=== PATIENT | male | born 1935 | race Caucasian/White ===

== ENCOUNTER → 2016-07-21 | Outpatient (REF) | payer MEDICARE ==
[~2016-07-21] MED LIST: /PANT40TA OR; ACET65TA OR; ASPI81TA3 OR; MUCINEX PO; NAPR250T45 PO; OCUVTAB8 PO; RANI1TAB38 PO; RANI300C PO; VIT D 2000 PO
[2016-07-21 12:43] LABS: ALBUMIN 3.5 GM/DL (3.2-5.2); ALBUMIN/GLOBULIN RATIO 1.25 (1.00-1.93); ALKALINE PHOSPHATASE 81 U/L (45-117); ALT/SGPT 15 U/L (12-78); ANION GAP 7 MEQ/L (8-16); AST/SGOT 18 U/L (15-37); BILIRUBIN,TOTAL 0.5 MG/DL (0.2-1.0); BLOOD UREA NITROGEN 23 MG/DL (7-18); CALCIUM LEVEL 9.1 MG/DL (8.8-10.2); CARBON DIOXIDE LEVEL 27 MEQ/L (21-32); CHLORIDE LEVEL 111 MEQ/L (98-107); CREATININE FOR GFR 1.21 MG/DL (0.70-1.30); FERRITIN 15 NG/ML (26-388); GLOMERULAR FILTRATION RATE > 60.0 (>35); GLUCOSE, FASTING 82 MG/DL (83-110); PERCENT SATURATION 24.4 % (19.7-37.4); POTASSIUM SERUM 4.4 MEQ/L (3.5-5.1); SODIUM LEVEL 145 MEQ/L (136-145); TOTAL IRON BINDING CAPACITY 312 UG/DL (250-450); TOTAL PROTEIN 6.3 GM/DL (6.4-8.2)
[2016-07-21 12:54] LABS: MEAN CORPUSCULAR HEMOGLOBIN 30.3 pg (27.0-33.0); MEAN CORPUSCULAR HGB CONC 31.1 g/dl (32.0-36.5); MEAN CORPUSCULAR VOLUME 97.3 fl (80.0-96.0); RED CELL DISTRIBUTION WIDTH 12.8 % (11.5-14.5); RETIC HEMOGLOBIN CONTENT CHr 32.2 PG (24-36); RETICULOCYTE % ADVIA2120 1.5 % (0.5-1.5); WHITE BLOOD COUNT 4.7 K/mm3 (4.0-10.0)
== END ==
LOC: M SFHCPLAZ 08:35
PROVIDERS: ATTEND Family Medicine
DX: D50.9 Iron deficiency anemia, unspecified (principal)

== ENCOUNTER → 2016-11-17 | Outpatient (REF) | payer MEDICARE ==
[2016-11-17 11:35] LABS: MEAN CORPUSCULAR HEMOGLOBIN 32.5 pg (27.0-33.0); MEAN CORPUSCULAR HGB CONC 32.8 g/dl (32.0-36.5); RED CELL DISTRIBUTION WIDTH 13.3 % (11.5-14.5); RETIC HEMOGLOBIN CONTENT CHr 33.4 PG (24-36); RETICULOCYTE % 1.1 % (0.5-1.5); WHITE BLOOD COUNT 4.7 K/mm3 (4.0-10.0)
== END ==
LOC: M SFHCPLAZ 08:30
PROVIDERS: ATTEND Family Medicine
DX: D50.9 Iron deficiency anemia, unspecified (principal)

== ENCOUNTER → 2017-06-22 | Outpatient (REF) | payer MEDICARE ==
[2017-06-22 12:28] LABS: HEMATOCRIT 41.3 % (42.0-52.0); HEMOGLOBIN 13.1 g/dl (14.0-18.0); MEAN CORPUSCULAR HEMOGLOBIN 30.8 pg (27.0-33.0); MEAN CORPUSCULAR HGB CONC 31.7 g/dl (32.0-36.5); MEAN CORPUSCULAR VOLUME 96.9 fl (80.0-96.0); PLATELET COUNT, AUTOMATED 235 10^3/uL (150-450); RED BLOOD COUNT 4.26 10^6/uL (4.30-6.10); RED CELL DISTRIBUTION WIDTH 13.1 % (11.5-14.5); RETIC HEMOGLOBIN EQUIVALENT 35.9 pg (24-36); RETICULOCYTE # 49.8 10^9/L (17-77); RETICULOCYTE % 1.2 % (0.5-1.5); WHITE BLOOD COUNT 5.1 10^3/uL (4.0-10.0)
[2017-06-22 12:44] LABS: ALBUMIN 3.4 GM/DL (3.2-5.2); ALBUMIN/GLOBULIN RATIO 1.26 (1.00-1.93); ALKALINE PHOSPHATASE 67 U/L (45-117); ALT/SGPT 16 U/L (12-78); ANION GAP 8 MEQ/L (8-16); AST/SGOT 13 U/L (7-37); BILIRUBIN,TOTAL 0.4 MG/DL (0.2-1.0); BLOOD UREA NITROGEN 22 MG/DL (7-18); CALCIUM LEVEL 8.9 MG/DL (8.8-10.2); CARBON DIOXIDE LEVEL 26 MEQ/L (21-32); CHLORIDE LEVEL 110 MEQ/L (98-107); CREATININE FOR GFR 1.33 MG/DL (0.70-1.30); FERRITIN 20 NG/ML (26-388); GLOMERULAR FILTRATION RATE 54.8 (>35); GLUCOSE, FASTING 82 MG/DL (70-100); IRON (FE) 72 UG/DL (65-175); PERCENT SATURATION 25.4 % (19.7-50.0); POTASSIUM SERUM 4.4 MEQ/L (3.5-5.1); SODIUM LEVEL 144 MEQ/L (136-145); TOTAL IRON BINDING CAPACITY 283 UG/DL (250-450); TOTAL PROTEIN 6.1 GM/DL (6.4-8.2)
== END ==
LOC: M SFHCPLAZ 08:04
DX: D50.9 Iron deficiency anemia, unspecified (principal); E78.4 Other hyperlipidemia
CPT/HCPCS: 83550

== ENCOUNTER 2017-08-16 08:23 | Day surgery (SDC) | payer MEDICARE ==
[2017-08-16] MEDS ORDERED: NS 1,000 ML IV (09:00)
[2017-08-16] MEDS ORDERED: PROPOFOL 200 MG/20 ML VIAL As Ordered (09:23)
== END 2017-08-16 10:32 | disposition home or self-care (01) ==
LOC: M OPP 08:23
DX: D50.9 Iron deficiency anemia, unspecified (principal); K22.8 Other specified diseases of esophagus; K44.9 Diaphragmatic hernia without obstruction or gangrene; K29.70 Gastritis, unspecified, without bleeding; E78.00 Pure hypercholesterolemia, unspecified; F64.9 Gender identity disorder, unspecified; G47.30 Sleep apnea, unspecified; N40.0 Benign prostatic hyperplasia without lower urinary tract symptoms; Z79.82 Long term (current) use of aspirin; Z79.899 Other long term (current) drug therapy; Z88.8 Allergy status to other drugs, medicaments and biological substances; Z87.891 Personal history of nicotine dependence
CPT/HCPCS: 43235

== ENCOUNTER → 2017-08-30 | Outpatient (REF) | payer MEDICARE ==
[2017-08-30 12:01] LABS: ALBUMIN 3.4 GM/DL (3.2-5.2); ALBUMIN/GLOBULIN RATIO 1.13 (1.00-1.93); ALKALINE PHOSPHATASE 76 U/L (45-117); ALT/SGPT 16 U/L (12-78); AST/SGOT 12 U/L (7-37); BILIRUBIN,DIRECT < 0.1 MG/DL (0.0-0.2); BILIRUBIN,TOTAL 0.5 MG/DL (0.2-1.0); TOTAL PROTEIN 6.4 GM/DL (6.4-8.2)
== END ==
LOC: M SFHCPLAZ 08:53
DX: Z51.81 Encounter for therapeutic drug level monitoring (principal)
CPT/HCPCS: 80076

== ENCOUNTER → 2018-08-01 | Outpatient (REF) | payer MEDICARE ==
[~2018-08-01] MED LIST changes: -/PANT40TA OR; +ALEV220T26 PO; +FERR325T3 PO; +FISH100049 PO; -NAPR250T45 PO; +NAPR250T82 PO; +PRESCAP6 PO; +PROT1TAB2 OR
[2018-08-01 12:36] LABS: ALBUMIN 3.2 GM/DL (3.2-5.2); BILIRUBIN,TOTAL 0.4 MG/DL (0.2-1.0); CALCIUM LEVEL 8.9 MG/DL (8.8-10.2); CREATININE FOR GFR 1.37 MG/DL (0.70-1.30); GLOMERULAR FILTRATION RATE 52.7 (>35); POTASSIUM SERUM 4.3 MEQ/L (3.5-5.1); TOTAL PROTEIN 6.5 GM/DL (6.4-8.2)
[2018-08-01 14:01] LABS: HEMATOCRIT 42.4 % (42.0-52.0); HEMOGLOBIN 13.3 g/dl (13.5-17.5); MEAN CORPUSCULAR HEMOGLOBIN 29.7 pg (27.0-33.0); MEAN CORPUSCULAR HGB CONC 31.4 g/dl (32.0-36.5); MEAN CORPUSCULAR VOLUME 94.6 fl (80.0-96.0); PLATELET COUNT, AUTOMATED 282 10^3/uL (150-450); RED BLOOD COUNT 4.48 10^6/uL (4.30-6.10)
== END ==
LOC: M SFHCPLAZ 07:44
PROVIDERS: ATTEND Family Medicine
DX: K22.70 Barrett's esophagus without dysplasia (principal); D50.9 Iron deficiency anemia, unspecified; N18.3 Chronic kidney disease, stage 3 (moderate)

== ENCOUNTER → 2019-01-28 | Outpatient (REF) | payer MEDICARE ==
[2019-01-28 11:28] LABS: HEMATOCRIT 43.3 % (42.0-52.0); HEMOGLOBIN 13.6 g/dl (13.5-17.5); MEAN CORPUSCULAR HEMOGLOBIN 30.1 pg (27.0-33.0); MEAN CORPUSCULAR HGB CONC 31.4 g/dl (32.0-36.5); MEAN CORPUSCULAR VOLUME 95.8 fl (80.0-96.0); PLATELET COUNT, AUTOMATED 246 10^3/uL (150-450); RED BLOOD COUNT 4.52 10^6/uL (4.30-6.10); WHITE BLOOD COUNT 5.6 10^3/uL (4.0-10.0)
[2019-01-28 11:36] LABS: ALBUMIN 3.3 GM/DL (3.2-5.2); BILIRUBIN,TOTAL 0.6 MG/DL (0.2-1.0); CALCIUM LEVEL 9.6 MG/DL (8.8-10.2); CHOLESTEROL RISK RATIO 4.633 (<5); CREATININE FOR GFR 1.42 MG/DL (0.70-1.30); GLOMERULAR FILTRATION RATE 50.6 (>35); POTASSIUM SERUM 5.1 MEQ/L (3.5-5.1); TOTAL PROTEIN 6.6 GM/DL (6.4-8.2)
[2019-01-28 12:13] LABS: TOTAL 25(OH) VITAMIN D 20.5 NG/ML (30.0-100.0)
== END ==
LOC: M SFHCPLAZ 07:59
PROVIDERS: ATTEND Family Medicine
DX: D50.9 Iron deficiency anemia, unspecified (principal); N18.3 Chronic kidney disease, stage 3 (moderate); E78.49 Other hyperlipidemia; E55.9 Vitamin D deficiency, unspecified

== ENCOUNTER → 2019-04-10 | Outpatient (CLI) | payer MEDICARE ==
--- NOTE | 2019-04-10 17:14 | REP ---
Chest x-ray: Two views. History: Bronchitis. Comparison chest x-ray: February 14, 2008. Findings: There is a large hiatal hernia behind the heart increase in size from the prior study. Heart is not felt to be enlarged. Pulmonary vasculature is not increased. Pleural angles are sharp. No infiltrate is seen. Impression: Large hiatal hernia. Otherwise no acute disease. Electronically Signed by Travon Buck MD 04/10/2019 05:06 P
== END ==
LOC: M ADAMS 14:25
PROVIDERS: ATTEND Family Medicine
DX: J40 Bronchitis, not specified as acute or chronic (principal); K44.9 Diaphragmatic hernia without obstruction or gangrene

== ENCOUNTER → 2019-07-30 | Outpatient (REF) | payer MEDICARE ==
[2019-07-30 13:23] LABS: HEMATOCRIT 43.4 % (42.0-52.0); HEMOGLOBIN 13.8 g/dl (13.5-17.5); MEAN CORPUSCULAR HGB CONC 31.8 g/dl (32.0-36.5); MEAN CORPUSCULAR VOLUME 94.3 fl (80.0-96.0); PLATELET COUNT, AUTOMATED 272 10^3/uL (150-450); WHITE BLOOD COUNT 6.4 10^3/uL (4.0-10.0)
[2019-07-30 13:48] LABS: CREATININE FOR GFR 1.25 MG/DL (0.70-1.30)
[2019-07-30 13:49] LABS: ALBUMIN 3.3 GM/DL (3.2-5.2); BILIRUBIN,TOTAL 0.4 MG/DL (0.2-1.0); CALCIUM LEVEL 9.3 MG/DL (8.8-10.2); GLOMERULAR FILTRATION RATE 58.4 (>35); PERCENT SATURATION 21.3 % (19.7-50.0); POTASSIUM SERUM 4.7 MEQ/L (3.5-5.1); TOTAL PROTEIN 6.7 GM/DL (6.4-8.2)
[2019-07-30 13:53] LABS: TOTAL 25(OH) VITAMIN D 32.6 NG/ML (30.0-100.0)
== END ==
LOC: M SFHCADAM 10:39
PROVIDERS: ATTEND Family Medicine
DX: D50.9 Iron deficiency anemia, unspecified (principal); N18.3 Chronic kidney disease, stage 3 (moderate); E55.9 Vitamin D deficiency, unspecified

== ENCOUNTER 2020-01-19 08:11 | Emergency (ER) | payer MEDICARE ==
[~2020-01-19] VITALS: Ht 175.3 cm; Wt 81.9 kg
[2020-01-19] MEDS ORDERED: FAMO40TA3 (08:38)
[2020-01-19] MEDS ORDERED: NS 1,000 ML IV ONE (09:00)
[2020-01-19] MEDS ORDERED: ISOVUE-370 76% 100ML VIAL As Ordered ONE (09:37)
[2020-01-19 09:49] LABS: BASO % 0.3 % (0.0-1.0); EOS % 0.3 % (0.0-3.0); HEMATOCRIT 42.9 % (42.0-52.0); HEMOGLOBIN 14.2 g/dl (13.5-17.5); LYMPH # 1.3 10^3/uL (1.5-5.0); LYMPH % 9.8 % (24.0-44.0); MEAN CORPUSCULAR HEMOGLOBIN 31.1 pg (27.0-33.0); MEAN CORPUSCULAR HGB CONC 33.1 g/dl (32.0-36.5); MEAN CORPUSCULAR VOLUME 93.9 fl (80.0-96.0); MONO # 1.5 10^3/uL (0.0-0.8); MONO % 11.1 % (0.0-5.0); NEUTROPHILS # 10.4 10^3/uL (1.5-8.5); PLATELET COUNT, AUTOMATED 232 10^3/uL (150-450); RED BLOOD COUNT 4.57 10^6/uL (4.30-6.10); WHITE BLOOD COUNT 13.3 10^3/uL (4.0-10.0)
[2020-01-19 10:10] LABS: ALBUMIN 3.1 GM/DL (3.2-5.2); BILIRUBIN,DIRECT 0.2 MG/DL (0.0-0.2); BILIRUBIN,TOTAL 0.9 MG/DL (0.2-1.0); TOTAL PROTEIN 6.4 GM/DL (6.4-8.2)
[2020-01-19 10:11] LABS: INR 1.04; PROTHROMBIN TIME 13.8 SECONDS (12.5-14.3)
[2020-01-19 10:12] LABS: PARTIAL THROMBOPLASTIN TIME 36.7 SECONDS (24.2-38.5)
--- NOTE | 2020-01-19 10:31 | REPVR ---
PROCEDURE INFORMATION: Exam: CT Abdomen And Pelvis With Contrast Exam date and time: 01/19/2020 10:00 AM Age: 84 years old Clinical indication: Abdominal pain; Localized; Lower; Additional info: Urinary retention/lower ab pain TECHNIQUE: Imaging protocol: Computed tomography of the abdomen and pelvis with intravenous contrast. Radiation optimization: All CT scans at this facility use at least one of these dose optimization techniques: automated exposure control; mA and/or kV adjustment per patient size (includes targeted exams where dose is matched to clinical indication); or iterative reconstruction. Contrast material: ISOVUE 370; Contrast volume: 100 ml; Contrast route: INTRAVENOUS (IV); COMPARISON: No relevant prior studies available. FINDINGS: Lungs: Mild bibasilar atelectasis or scar Mediastinal space: There is a large hiatal hernia with paraesophageal component. Distal thoracic aorta is tortuous and ectatic. Liver: There is a 5 mm hypodense lesion in the right hepatic dome. A 2.0 cm predominantly hypodense lesion in the right posterior hepatic dome is more dense than a simple cyst with Hounsfield units of 40, with a 4 mm eccentric calcification posteriorly. Gallbladder and bile ducts: Normal. No calcified stones. No ductal dilation. Pancreas: Normal. No ductal dilation. Spleen: Normal. No splenomegaly. Adrenals: Normal. No mass. Kidneys and ureters: An exophytic slightly hypodense lesion extending to the left anterior laterally from the mid to lower left kidney measures 2.7 cm and has Hounsfield units of 27, more dense than a simple cyst. There are also two 5 mm lesions more superiorly in the left kidney which is too small to characterize. There is bilateral renal cortical atrophy, left greater than right. There is moderate to severe left-sided hydronephrosis with minimal hydroureter. There is left periureteral and perinephric fat stranding, with minimal enhancement of the left urothelium particularly in the distal ureter. No left ureteral calculus is seen. However, there are 2 locations in the left distal ureter, 1 of which is near the ureterovesical junction, with vague slightly increased density, nonspecific but raising concern for urothelial lesions such as transitional cell carcinoma. Stomach and bowel: No bowel dilatation to indicate obstruction. No pneumatosis. There are multiple colonic diverticula without focal features of diverticulitis. Appendix: Appendix is not definitively located. Intraperitoneal space: Unremarkable. No free air. No significant fluid collection. Vasculature: There is calcified atherosclerotic plaque in the abdominal aorta and medium-sized arteries in the abdomen and pelvis. No aortic aneurysm. Lymph nodes: Unremarkable. No enlarged lymph nodes. Bladder: Bladder is collapsed around a Mann catheter. There may be bladder wall thickening. Slightly prominent urachal remnant extending to the right anterosuperiorly. Reproductive: There are bilateral prostatic calcifications. Bones/joints: No acute osseous abnormality. Degenerative change with anterior bridging osteophytes at the sacroiliac joints. Soft tissues: There is fat stranding in the left inguinal region, likely from prior left inguinal hernia repair. Small recurrent residual noninflamed fat containing left inguinal hernia. Small fat containing umbilical and periumbilical noninflamed hernias. IMPRESSION: 1. Moderate to severe left-sided hydronephrosis with minimal hydroureter. Left periureteral and perinephric fat stranding with minimal enhancement of the left urothelium, most pronounced in 2 locations in the left distal ureter, nonspecific but raising concern for transitional cell carcinoma. No ureteral calculus is seen. Consider CT intravenous urogram and urology consultation. 2. 2.0 cm predominantly hypodense lesion in the right liver, more dense than a simple cyst, with 4 mm eccentric calcification. This may represent a complex cyst or solid mass. 5 mm hypodense lesion in the right hepatic dome is too small to characterize. 3. 2.7 cm hypodense lesion in the left kidney, too small to characterize but more dense than a simple cyst. This may represent a complex cyst or solid mass. Suggest comparison with prior outside studies. Consider follow-up ultrasound. There are also 2 smaller 5 mm lesions more superiorly in the left kidney which are too small to characterize, statistically most likely cysts. 4. Additional findings: Multiple colonic diverticula without focal features of diverticulitis. Noninflamed fat containing umbilical, periumbilical, and left inguinal hernias. Electronically signed by: Ursula Briceno On 01/19/2020 10:30:55 AM
[2020-01-19] MEDS ORDERED: CIPR-249 PO (11:50)
[2020-01-19 12:06] VITALS: BP 137/84
--- NOTE | 2020-01-19 15:09 | ED PDOC ---
Post-Departure Follow-Up radiology report faxed to Debbi Monteiro MD Jan 19, 2020 15:09
[2020-03-03] MEDS ORDERED: TAMS1CAP17 (10:54)
[2020-03-03] MEDS ORDERED: GNP250TA9 PO (13:07)
[2020-03-03] MEDS ORDERED: VITA100T59 PO (13:07)
== END 2020-01-19 12:18 | disposition home or self-care (01) ==
LOC: M ED 08:11
DX: N39.0 Urinary tract infection, site not specified (principal); R33.9 Retention of urine, unspecified; N13.30 Unspecified hydronephrosis; K76.89 Other specified diseases of liver; N28.9 Disorder of kidney and ureter, unspecified; G47.33 Obstructive sleep apnea (adult) (pediatric); N40.1 Benign prostatic hyperplasia with lower urinary tract symptoms; Z88.8 Allergy status to other drugs, medicaments and biological substances; Z79.899 Other long term (current) drug therapy
CPT/HCPCS: 51703; 74177; 80047; 80076; 81001; 83605; 83690; 85025; 85610; 85730; 87088; 87186; 96360; 96361; 99284; Q9967

== ENCOUNTER → 2020-01-22 | Outpatient (REF) | payer MEDICARE ==
[~2020-01-22] MED LIST changes: +CIPR-249 PO; +FAMO40TA3; +GNP250TA9 PO; +TAMS1CAP17; +VITA100T59 PO
== END ==
LOC: M SMT 14:32
PROVIDERS: ATTEND Urology
DX: R33.9 Retention of urine, unspecified (principal)

== ENCOUNTER → 2020-01-23 | Outpatient (REF) | payer MEDICARE | LOC: M SMT 15:27 | PROVIDERS: ATTEND Urology | DX: C66.9 Malignant neoplasm of unspecified ureter (principal) ==

== ENCOUNTER → 2020-02-10 | Outpatient (REF) | payer MEDICARE ==
[~2020-02-10] MED LIST changes: -GNP250TA9 PO; -TAMS1CAP17; -VITA100T59 PO
[2020-02-10 17:44] LABS: CALCIUM LEVEL 9.4 MG/DL (8.8-10.2); CREATININE FOR GFR 1.39 MG/DL (0.70-1.30); GLOMERULAR FILTRATION RATE 51.7 (>35); POTASSIUM SERUM 4.5 MEQ/L (3.5-5.1)
== END ==
LOC: M LABSMT 14:08 → M SFHCADAM 14:09
PROVIDERS: ATTEND Nurse Practitioner Women's Health
DX: N13.30 Unspecified hydronephrosis (principal)

== ENCOUNTER → 2020-02-17 | Outpatient (CLI) | payer MEDICARE ==
[~2020-02-17] MED LIST changes: +GNP250TA9 PO; +ISOVUE-370 76% 100ML VIAL As Ordered ONE; +TAMS1CAP17; +VITA100T59 PO
--- NOTE | 2020-02-17 10:08 | REP ---
INDICATION: HYDRONEPHROSIS. COMPARISON: 01/19/2020, 02/02/2010 TECHNIQUE: Axial precontrast, contrast-enhanced and delayed images from the lung bases to the pubic symphysis using 100 cc Isovue 370 intravenous contrast material. Coronal and sagittal reformations obtained. This CT examination was performed using the following dose reduction techniques: Automated exposure control, adjustment of mA and/or kv according to the patient's size, and the use of iterative reconstruction technique. FINDINGS: The right kidney/ureter and bladder appear relatively normal. The left kidney demonstrates asymmetric cortical thinning and 2.7 cm complex exophytic lateral renal cyst which remains relatively stable in density throughout the examination. There is hydroureteronephrosis with subtle enhancement to the urothelial mucosa of the collecting system along with mild stranding, and delayed excretion to the collecting system with findings to suggest masslike filling within the renal pelvis. Findings are concerning for possible neoplasm. Liver includes 2 cysts within the right hepatic lobe essentially unchanged. Spleen, pancreas, gallbladder, bilateral adrenal glands are normal. The enteric system demonstrates stable moderate/large Sarah off a halfway gastric hiatal hernia along with moderate diffuse fecal stasis and scattered colonic diverticula. No acute a bowel obstruction or inflammatory process otherwise noted. Pelvis demonstrates relatively normal bladder and evidence for prior prostate surgery with prostate calcifications essentially unchanged. No ascites. No free air. No significant adenopathy. Abdominal aorta without aneurysm or dissection. Musculoskeletal structures demonstrate age-related changes without acute osseous abnormality. IMPRESSION: 1. Abnormalities involving the left renal collecting system require urology consultation and further investigation. Differential diagnosis includes chronic debris as well as neoplasm. 2. Further nonacute chronic findings as described above. <Electronically signed by Krystian Rodriguez > 02/17/20 [id number]
== END ==
LOC: M RAD 08:24
PROVIDERS: ATTEND Nurse Practitioner Women's Health
DX: N13.30 Unspecified hydronephrosis (principal)
CPT/HCPCS: 74178; Q9967

== ENCOUNTER → 2020-02-25 | Outpatient (REF) | payer MEDICARE ==
[~2020-02-25] MED LIST changes: -ISOVUE-370 76% 100ML VIAL As Ordered ONE
[2020-02-25 12:29] LABS: HEMATOCRIT 42.3 % (42.0-52.0); HEMOGLOBIN 13.1 g/dl (13.5-17.5); MEAN CORPUSCULAR HEMOGLOBIN 29.7 pg (27.0-33.0); MEAN CORPUSCULAR VOLUME 95.9 fl (80.0-96.0); PLATELET COUNT, AUTOMATED 288 10^3/uL (150-450); RED BLOOD COUNT 4.41 10^6/uL (4.30-6.10); WHITE BLOOD COUNT 7.2 10^3/uL (4.0-10.0)
[2020-02-25 12:34] LABS: INR 1.05; PROTHROMBIN TIME 13.9 SECONDS (12.5-14.3)
[2020-02-25 12:35] LABS: PARTIAL THROMBOPLASTIN TIME 39.1 SECONDS (24.2-38.5)
[2020-02-25 12:57] LABS: CALCIUM LEVEL 9.5 MG/DL (8.8-10.2); CREATININE FOR GFR 1.7 MG/DL (0.70-1.30)
== END ==
LOC: M LABSMT 11:19 → M SFHCADAM 11:22
PROVIDERS: ATTEND Urology
DX: N13.30 Unspecified hydronephrosis (principal); Z01.818 Encounter for other preprocedural examination; N39.0 Urinary tract infection, site not specified; Z79.01 Long term (current) use of anticoagulants

== ENCOUNTER → 2020-02-26 | Outpatient (CLI) | payer MEDICARE ==
--- NOTE | 2020-02-26 09:44 | REP ---
INDICATION: HYDRONEPHROSIS/PREOP TESTING COMPARISON: 02/14/2008. TECHNIQUE: PA/Lateral FINDINGS: Lungs: Clear, no infiltrate. Heart: Normal in size. Mediastinum: Mediastinal silhouette unremarkable. There is a large hiatal hernia. Pleural angles: Mild scarring.. Bones and soft tissues: There are [id number] degenerative changes of the spine without compression deformity. IMPRESSION: No acute pulmonary disease. Large hiatal hernia. <Electronically signed by Benito Moreira > 02/26/20 0940
== END | disposition home or self-care (01) ==
LOC: M RAD 08:52
PROVIDERS: ATTEND Urology
DX: Z01.818 Encounter for other preprocedural examination (principal); N13.30 Unspecified hydronephrosis; K44.9 Diaphragmatic hernia without obstruction or gangrene

== ENCOUNTER → 2020-02-29 | Outpatient (CLI) | payer MEDICARE | LOC: M LABSMTC 11:45 | PROVIDERS: ATTEND Anesthesiology | DX: Z01.818 Encounter for other preprocedural examination (principal); Z20.828 Contact with and (suspected) exposure to other viral communicable diseases | CPT/HCPCS: C9803; U0003 ==

== ENCOUNTER → 2020-03-05 | Day surgery (SDC) | payer MEDICARE ==
[~2020-03-05] VITALS: Ht 176.5 cm; Wt 77.4 kg
[~2020-03-05] MED LIST changes: +CONRAY-60 60% 50ML VIAL (Q9961) As Ordered ONE; +LIDOCAINE 2% 100MG/5ML SDV (FOR ANES.) As Ordered ONE; +LR 1,000 ML IV ONE; +LR 1,000 ML IV SCH; +METOCLOPRAMIDE INJ 10MG/2ML VIAL (J2765 PER 1) IV PRN; +MIDAZOLAM INJ 2MG/2ML VIAL (J2250 PER 1MG) As Ordered ONE; +ONDANSETRON 4MG/2ML VIAL As Ordered ONE; +ONDANSETRON 4MG/2ML VIAL IV PRN; +PERCOCET 5MG/325MG TAB PO PRN; +ceFAZolin SOD 2 GM in IV 1 EA IV ONE; +dexameTHASONE 4 MG/ML 1ML VIAL (J1100 PER 1MG) As Ordered ONE; +ePHEDrine SULFATE 25 MG/5 ML(5MG/ML) SYRINGE As Ordered ONE; +fentaNYL 100 MCG/2 ML INJECTION (J3010) As Ordered ONE; +fentaNYL 100 MCG/2 ML INJECTION (J3010) IV PRN; +propofoL 200 MG/20 ML VIAL As Ordered ONE
--- NOTE | 2020-03-05 09:04 | REP ---
INDICATION: CYSTOSCOPY. COMPARISON: CT abdomen February 17, 2020.. TECHNIQUE: Six views. 24 seconds of fluoroscopy time is reported. FINDINGS: A sequence of 6 last image hold fluoroscopically obtained spot radiographs of the abdomen document left ureteral cannulation, contrast injection, and double-pigtail stent placement. No visible laterality markers. IMPRESSION: Procedural imaging. <Electronically signed by Garrett Buck > 03/05/20 2450
[2020-03-05 10:30] VITALS: BP 154/80
--- NOTE | 2020-03-05 10:59 | RO ---
DATE OF OPERATION: 03/05/2020 PREOPERATIVE DIAGNOSIS: Left hydronephrosis. POSTOPERATIVE DIAGNOSIS: Left renal pelvis mass. PROCEDURES: Cystoscopy, left ureteroscopy with biopsy, left retrograde pyelogram with intraoperative interpretative images, left ureteral stent placement. SURGEON: Solomon Felipe MD [employer] SUPERVISOR: None. ANESTHESIA: General. OPERATIVE INDICATIONS: This is an 84-year-old male with a left hydroureteronephrosis and based on preoperative CT scan, it was difficult to determine the cause. There was concern for a mass in the left renal pelvis. He was brought to the operating room today to investigate this. DESCRIPTION OF PROCEDURE: The patient was brought to the operating room and general anesthesia was induced. Prophylactic antibiotics were infused. He was placed in the dorsolithotomy position, and prepped, and draped in the usual sterile fashion. The cystoscope was inserted into the ureteral meatus and advanced into the bladder. A guidewire was advanced up the left collecting system. I examined the bladder thoroughly and no abnormalities were seen inside the bladder other than mild trabeculations. I then went up the left collecting system with a short semirigid ureteroscope. No abnormalities were seen in the distal ureter. A retrograde pyelogram was performed and it was notable for moderate left hydroureteronephrosis with what appeared to be a filling defect in the area of the left renal pelvis. There was no extravasation. At this point, I went up into the more proximal ureter with the short semirigid ureteroscope and no abnormalities were seen inside the ureter other than the fact that it was hydronephrotic. At this point, I traded out the short semirigid ureteroscope for a flexible ureteroscope. I advanced a ureteral access sheath up to the left collecting system. I then went up the access sheath with the flexible ureteroscope and at the level of the left renal pelvis, there was a large amount of whitish-yellowish necrotic appearing and fibrotic tissue emanating from the left renal pelvis. I entered the left renal pelvis with the ureteroscope and examined the left kidney thoroughly. The left kidney was severely hydronephrotic. There was a large amount of this fibrotic tissue in the area of the left renal pelvis. I examined all the calyces and no definite tumors were seen. I obtained urine from the left renal pelvis to be sent for culture and cytology. At this point, I used a basket to obtain several biopsies of this tissue to be sent for pathologic analysis. Of note, it was very hard to remove this tissue as it appeared to be very adherent to the urothelium. After taking a few biopsies and taking another look around the kidney, I once again could not identify any definite tumor inside the left kidney. There were no stones. At this point, another retrograde pyelogram was performed and confirmed the filling defect, and there was no extravasation. I then withdrew the ureteroscope along with the access sheath and no additional abnormalities were seen inside the ureter. I then utilized the guidewire to advance a 7-Icelandic x 22-32 cm JJ ureteral stent into the left collecting system. The wire was removed and then adequately coiled to the stent in the left renal pelvis and in the bladder. The bladder was emptied of all fluids and this marked completion of the procedure. The patient was then taken out of the dorsolithotomy position, awakened from anesthesia, and transferred to the recovery room in stable condition. ESTIMATED BLOOD LOSS: 5 mL. COMPLICATIONS: None. SPECIMENS: Urine for culture and cytology. Biopsies of the left renal pelvis mass. PLAN: The patient will follow-up in the urology clinic in approximately one week to discuss the results. If everything comes back negative from the cultures, cytology and pathology, then my main concern will be how to keep his kidney from becoming obstructed again as this tissue does not appear likely to pass. He might need chronic stenting. JEANNETTE
== END | disposition home or self-care (01) ==
LOC: M SDC 06:03
PROVIDERS: ATTEND Urology
DX: N13.30 Unspecified hydronephrosis (principal); N28.89 Other specified disorders of kidney and ureter; I96 Gangrene, not elsewhere classified; Z88.8 Allergy status to other drugs, medicaments and biological substances; E78.49 Other hyperlipidemia; K21.9 Gastro-esophageal reflux disease without esophagitis; D64.9 Anemia, unspecified; G47.30 Sleep apnea, unspecified; Z87.891 Personal history of nicotine dependence; Z79.899 Other long term (current) drug therapy
CPT/HCPCS: 52007; 52332; 74420; 87088; 87186; 87205; 88108; 88305; C1769; C1894; C2617; J0690; J1100; J2250; J2405; J3010; Q9961

== ENCOUNTER → 2020-03-31 | Outpatient (REF) | payer MEDICARE ==
[~2020-03-31] MED LIST changes: -CONRAY-60 60% 50ML VIAL (Q9961) As Ordered ONE; -LIDOCAINE 2% 100MG/5ML SDV (FOR ANES.) As Ordered ONE; -LR 1,000 ML IV ONE; -LR 1,000 ML IV SCH; -METOCLOPRAMIDE INJ 10MG/2ML VIAL (J2765 PER 1) IV PRN; -MIDAZOLAM INJ 2MG/2ML VIAL (J2250 PER 1MG) As Ordered ONE; -ONDANSETRON 4MG/2ML VIAL As Ordered ONE; -ONDANSETRON 4MG/2ML VIAL IV PRN; -PERCOCET 5MG/325MG TAB PO PRN; -ceFAZolin SOD 2 GM in IV 1 EA IV ONE; -dexameTHASONE 4 MG/ML 1ML VIAL (J1100 PER 1MG) As Ordered ONE; -ePHEDrine SULFATE 25 MG/5 ML(5MG/ML) SYRINGE As Ordered ONE; -fentaNYL 100 MCG/2 ML INJECTION (J3010) As Ordered ONE; -fentaNYL 100 MCG/2 ML INJECTION (J3010) IV PRN; -propofoL 200 MG/20 ML VIAL As Ordered ONE
[2020-03-31 14:11] LABS: APPEARANCE, URINE MANUAL TURBID (CLEAR); COLOR, URINE MANUAL YELLOW (YELLOW)
[2020-03-31 14:12] LABS: BILIRUBIN, URINE MANUAL NEGATIVE (NEGATIVE); BLOOD URINE MANUAL POSITIVE (NEGATIVE); GLUCOSE, URINE (UA) MANUAL NEGATIVE (NEGATIVE); KETONE, URINE MANUAL NEGATIVE (NEGATIVE); LEUKOCYTE ESTERASE, URINE MAN POSITIVE (NEGATIVE); NITRITE, URINE MANUAL POSITIVE (NEGATIVE); PH,URINE MAN 5.5 UNITS (5.0 - 7.0); PROTEIN, URINE MANUAL 3+ mg/dL (NEGATIVE); UROBILINOGEN, URINE MANUAL NORMAL (NORMAL)
[2020-03-31 14:14] LABS: BACTERIA, URINE LARGE AMOUNT; HYALINE CAST, URINE NONE SEEN /lpf (0-1); SQUAMOUS EPITHELIAL CELL URINE NONE SEEN /hpf (SMALL AMT); WBC, URINE TNTC /hpf (0-3)
== END ==
LOC: M SMT 13:13
PROVIDERS: ATTEND Nurse Practitioner Women's Health
DX: R30.0 Dysuria (principal)

== ENCOUNTER → 2020-05-05 | Outpatient (REF) | payer MEDICARE ==
[2020-05-05 20:07] LABS: APPEARANCE, URINE CLOUDY (CLEAR); BACTERIA, URINE AUTO 1+ (NEGATIVE); BILIRUBIN, URINE AUTO NEGATIVE (NEGATIVE); BLOOD, URINE BLOOD 2+ (NEGATIVE); COLOR, URINE YELLOW (YELLOW); GLUCOSE, URINE (UA) AUTO NEGATIVE (NEGATIVE); KETONE, URINE AUTO NEGATIVE (NEGATIVE); LEUKOCYTE ESTERASE, URINE AUTO 3+ (NEGATIVE); MUCUS, URINE SMALL (NEGATIVE); NITRITE, URINE AUTO NEGATIVE (NEGATIVE); PROTEIN, URINE AUTO 2+ mg/dL (NEGATIVE); RBC, URINE AUTO TNTC /HPF (0-3); SPECIFIC GRAVITY URINE AUTO 1.023 (1.002-1.035); SQUAMOUS EPITHELIAL CELL UR AU 0 /HPF (0-6); UROBILINOGEN, URINE AUTO 0.2 mg/dL (0.0-2.0); WBC, URINE AUTO 153 /HPF (0-3)
== END ==
LOC: M SMT 16:43
PROVIDERS: ATTEND Nurse Practitioner Women's Health
DX: N39.0 Urinary tract infection, site not specified (principal)

== ENCOUNTER → 2020-05-21 | Outpatient (REF) | payer MEDICARE ==
[2020-05-21 13:02] LABS: HEMATOCRIT 40.4 % (42.0-52.0); HEMOGLOBIN 12.6 g/dl (13.5-17.5); MEAN CORPUSCULAR HEMOGLOBIN 29.6 pg (27.0-33.0); MEAN CORPUSCULAR HGB CONC 31.2 g/dl (32.0-36.5); MEAN CORPUSCULAR VOLUME 94.8 fl (80.0-96.0); PLATELET COUNT, AUTOMATED 250 10^3/uL (150-450); RED BLOOD COUNT 4.26 10^6/uL (4.30-6.10)
[2020-05-21 13:13] LABS: PROTHROMBIN TIME 13.4 SECONDS (12.5-14.3)
[2020-05-21 13:14] LABS: PARTIAL THROMBOPLASTIN TIME 38.8 SECONDS (24.2-38.5)
[2020-05-21 13:34] LABS: CALCIUM LEVEL 9.7 MG/DL (8.8-10.2); CREATININE FOR GFR 1.61 MG/DL (0.70-1.30); GLOMERULAR FILTRATION RATE 43.6 (>35); POTASSIUM SERUM 4.7 MEQ/L (3.5-5.1)
== END ==
LOC: M SFHCADAM 09:11
PROVIDERS: ATTEND Family Medicine
DX: Z01.818 Encounter for other preprocedural examination (principal); D50.9 Iron deficiency anemia, unspecified; N18.30 Chronic kidney disease, stage 3 unspecified

== ENCOUNTER → 2020-06-01 | Outpatient (REF) | payer MEDICARE | LOC: M SMT 12:02 | PROVIDERS: ATTEND Urology | DX: N21.8 Other lower urinary tract calculus (principal) ==

== ENCOUNTER → 2020-06-12 | Outpatient (REF) | payer MEDICARE ==
[~2020-06-12] MED LIST changes: +ACET-907 PO; +ASPI81TA26 PO; -FAMO40TA3; +FAMO40TA3 PO; +FISH1000 PO; +MUCI600T31 PO; +PRESCAP PO; -TAMS1CAP17; +TAMS1CAP17 PO
[2020-06-12 14:10] LABS: APPEARANCE, URINE HAZY (CLEAR); BACTERIA, URINE AUTO 1+ (NEGATIVE); BILIRUBIN, URINE AUTO NEGATIVE (NEGATIVE); BLOOD, URINE BLOOD 3+ (NEGATIVE); COLOR, URINE YELLOW (YELLOW); GLUCOSE, URINE (UA) AUTO NEGATIVE (NEGATIVE); KETONE, URINE AUTO NEGATIVE (NEGATIVE); LEUKOCYTE ESTERASE, URINE AUTO 3+ (NEGATIVE); MUCUS, URINE SMALL (NEGATIVE); NITRITE, URINE AUTO NEGATIVE (NEGATIVE); PROTEIN, URINE AUTO 2+ mg/dL (NEGATIVE); RBC, URINE AUTO 119 /HPF (0-3); SQUAMOUS EPITHELIAL CELL UR AU 0 /HPF (0-6); UROBILINOGEN, URINE AUTO 0.2 mg/dL (0.0-2.0); WBC, URINE AUTO 57 /HPF (0-3)
== END ==
LOC: M SMT 13:41
PROVIDERS: ATTEND Nurse Practitioner Women's Health
DX: N13.30 Unspecified hydronephrosis (principal); Z01.818 Encounter for other preprocedural examination

== ENCOUNTER → 2020-06-14 | Outpatient (CLI) | payer MEDICARE | LOC: M LABSMTC 08:00 | PROVIDERS: ATTEND Anesthesiology | DX: Z01.812 Encounter for preprocedural laboratory examination (principal); Z20.822 Contact with and (suspected) exposure to COVID-19 ==

== ENCOUNTER 2020-06-19 10:51 | Day surgery (SDC) | payer MEDICARE ==
[~2020-06-19] VITALS: Ht 175.3 cm; Wt 77.1 kg
[~2020-06-19 10:51] MED LIST changes: +CIPROFLOXACIN 400 MG in IV 1 EA IV ONE; +LR 1,000 ML IV ONE
--- OUTSIDE RECORDS SUMMARY | 2020-06-19 10:55 | CCD ---
Author Author [facility] Organization [facility] Address Unknown Phone Unavailable Care Team Providers Care Puller Out Name Role Phone Solomon Felipe Unavailable PROBLEMS Type Condition ICD9-CM Code [id number] Code Onset Dates Condition S tatus W/U Status Risk SNOMED Code Notes Problem Other myositis, unspecified site M60.80 Active conf irmed 40546981 Problem Encounter for immunization Z23 Active confirmed 415711508 Problem Vitamin D deficiency, unspecified E55.9 Active con firmed 12691754 Problem Iron deficiency anemia, unspecified D50.9 Acti ve confirmed 35354945 Problem CKD (chronic kidney disease), stage III N18.3 Active confirmed 905194042 Problem Hydronephrosis N13.30 Active confirmed 53129 006 Problem Obstructive sleep apnea (adult) (pediatric) G47.33 Active confirmed 28876749 Problem UTI (urinary tract infection) N39.0 Active confirm ed 00786867 Problem 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 Ac tive confirmed 972952415 unable to tolate (multiple) PPIs; on H2A Problem Medicare annual wellness visit, subsequent Z00.00 Active confirmed 085618807 Problem Dyslipidemia E78.5 Active confirmed 6987279 07 intolerant oif (multiple) statins Problem Benign enlargement of prostate N40.0 Active confir med 768739278 Problem Preop testing Z01.818 Active confirmed 6595182 9909 ALLERGIES Allergen (clinical drug ingredient) Drug/Non Drug Allergy do cumented on EMR Reaction Allergy Type Onset Date Status atorvastatin Lipitor([facility] Code:[address]-52) myalgias Drug Allergy Active Multiple statins myalgias Non Drug Allergy Ac tive omeprazole Prilosec([facility] Code:[address]-60) Diarrhea Drug Allergy Active Crestor muscle cramps Non Drug Allergy Activ e niacin Niacin([facility] Code:[address]-46) flushed Drug Allergy Active Zetia myalgias Non Drug Allergy Active Multiple PPI's Diarrhea Non Drug Allergy Acti ve ENCOUNTERS from 1934 to 2020-06-01 Encounter Location Date Provider Diagnosis [facility] [address] [place] [address] May Solomon Felipe Calculus of other lower urinary tract lo cation N21.8 IMMUNIZATIONS Vaccine Route Administration Date Status Influenza (High Dose 65 & up) IM Intramuscular Apr 13, 2017 A dministered Influenza (High Dose 65 & up) IM Intramuscular Mar 10, 2016 A dministered Influenza (High Dose 65 & up) IM Intramuscular Mar 17, 2015 A dministered Influenza (High Dose 65 & up) IM Intramuscular Mar 25, 2014 A dministered Pneumococcal Adult 0.5mL (Pneumovax 23) IM Intramuscular Jun 25, 2015 Administered Pneumococcal 0.5mL (Prevnar 13) IM Intramuscular Mar 25, 2014 Administered Influenza (18 yrs & older) Flublok IM Intramuscular Feb 07, 2019 Administered Influenza (6mo & up) Fluzone IM Intramuscular Mar 12, 2013 Ad ministered Influenza (6mo & up) Fluzone IM Intramuscular Apr 11, 2012 Ad ministered Influenza (6mo & up) Fluzone IM Intramuscular Feb 08, 2010 Ad ministered SOCIAL HISTORY Tobacco Use: Social History Observation Description Date Details (start date - stop date) Former Smoker Sex Assigned At : Social History Observation Description Sex Assigned At Unknown Audit Question Answer Notes Total Score: 1 Interpretation: Alcohol Education Language: Question Answer Notes Languages spoken: Arabic Mandaen: Question Answer Notes Mandaen 08 Muslim Sexual Hx: Question Answer Notes Had sex in the last 12 months (vaginal, oral, or anal)? No Have you ever had an STD? No Drug and Alcohol Question Answer Notes Total Score: 0 Interpretation: No problems reported Alcohol Screening: Question Answer Notes Did you have a drink containing alcohol in the past year? Ye s Points 2 Interpretation Negative How often did you have six or more drinks on one occas ion in the past year? Never (0 points) How many drinks did you have on a typica l day when you were drinking in the past year? 1 or 2 (0 points) How often did you have a drink containing alcohol in t he past year? Two to four times a month (2 points) Tobacco Use: Question Answer Notes Are you a: former smoker How long has it been since you last smoked? > 10 years REASON FOR REFERRAL No Information VITAL SIGNS No information MEDICATIONS Medication SIG (Take, Route, Frequency, Duration) Notes Start Da te End Date Status Famotidine 40 MG 1 tablet at bedtime Orally Once a day for 90 da y(s) August, Active Magnesium 250 MG 1 tablet with a meal Orally Once a day for 30 day(s) Active Tylenol 325 MG 2 tablet as needed Orally prn Active Mucinex 600 MG 1 tablet as needed Orally every 12 hrs Active Aleve 220 MG 1 tablet as needed Orally every 12 hrs Active Aspirin EC 81 MG 1 tablet Orally Once a day Active Cipro 500 MG 1 tablet Orally every 12 hrs for 14 day(s) Active Vitamin C 500 MG as directed Orally Active Vitamin D 2000 UNIT 1 tablet Orally daily Active Flomax 0.4 MG 1 capsule Orally Once a day for 30 day(s) Active Fish Oil 1000 MG 1 capsule Orally Once a day Active Eye Vitamins 2 capsule Orally Twice a day Active PROCEDURES No Information RESULTS No Results REASON FOR VISIT blood in urine after LASER LITHO MEDICAL (GENERAL) HISTORY Type Description Date Medical History BPH bx Medical History hyperlipidemia-- intolerant of multiple statins and Zetia Medical History allergic rhinitis Medical History prediabetes/IFG Medical History metabolic syndrome Medical History RITA+ CPAP 05/2008 Medical History Fe defic anemia 02/07--neg G I w/u, transfused 2 units: Golden's on EGD; neg capsule endo, neg colonoscopy; iron studies normal Medical History Golden's esophagus EGD, + b x for metaplasia 02/07, 04/10, 03/13, 07/13; doesn't tolerate PPI's Medical History intolerable myalgias on statins Medical History renal stone, [place] 05/15 Medical History Neoplasm of uncertain behavior of skin Medical History CKD 3, GFR ~ 50 Medical History Vitamin D defic, resarted Vit D 02/16 Surgical History Bilateral inguinal hernia repair ( Dr.Ba de la fuente) Surgical History TURP () 2002 Surgical History tonsillectomy child Surgical History colonoscopy 1999, 2003, 01/2010, 07/13 Surgical History EGD (+ metaplastic changes on bx) 0, 04/10,07/13 Surgical History capsule endoscopy (neg) 2009 Surgical History EGD - HH, Biopsy showed Golden's 06/2012 Surgical History Right eye cataract 03/2016 Surgical History Left eye cataract 03/2016 Surgical History endoscopy 2018 Surgical History L URS 03/2020 Goals Section No Information Health Concerns No Information MEDICAL EQUIPMENT No Information MENTAL STATUS No Information FUNCTIONAL STATUS No Information ASSESSMENTS Encounter Date Diagnosis Assessment Notes Treatment Notes Treatm ent Clinical Notes May, Calculus of other lower urinary tract location ( ICD-10 - N21.8) PLAN OF TREATMENT Medication Medication Name Sig Start Date Stop Date Vitamin D 2000 UNIT 1 tablet Orally daily Treatment Notes Test Name Order Date URINE CULTURE 2020-05-29 Next Appt Details Provider Name:Solomon Rose Felipe, 01:15:00 PM, [address], [place], [address], Insurance Providers Payer Name Payer Address Payer Phone Insured Name Patient Relati onship to Insured Coverage Start Date Coverage End Date MEDICARE BLUE PPO [address] [facility] [id number] [address] [place] self
--- OUTSIDE RECORDS SUMMARY | 2020-06-19 10:56 | CCD ---
Author Author [facility] Organization [facility] Address Unknown Phone Unavailable Care Team Providers Care Vice President Of Human Resources Name Role Phone Wendy Licona Unavailable PROBLEMS Type Condition ICD9-CM Code MTH18-LS Code Onset Dates Condition S tatus SNOMED Code Notes Problem Other myositis, unspecified site M60.80 Active 90472984 Problem Encounter for immunization Z23 Active 10444 6002 Problem Vitamin D deficiency, unspecified E55.9 Active 16877962 Problem Iron deficiency anemia, unspecified D50.9 Acti ve 44743963 Problem CKD (chronic kidney disease), stage III N18.3 Active 709808129 Problem Hydronephrosis N13.30 Active 13195660 Problem Obstructive sleep apnea (adult) (pediatric) G47.33 Active 72612344 Problem UTI (urinary tract infection) N39.0 Active 68 592005 Problem 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 Ac tive 045060209 unable to tolate (multiple) PPIs; on H2A Problem Medicare annual wellness visit, subsequent Z00.00 Active 798581969 Problem Dyslipidemia E78.5 Active 807438898 intoleran t oif (multiple) statins Problem Benign enlargement of prostate N40.0 Active 2 72571007 Problem Preop testing Z01.818 Active 022032637 ALLERGIES Allergen (clinical drug ingredient) Drug/Non Drug Allergy do cumented on EMR Reaction Allergy Type Onset Date Status atorvastatin Lipitor([facility] Code:[address]-44) myalgias Drug Allergy Active Multiple statins myalgias Non Drug Allergy Ac tive omeprazole Prilosec([facility] Code:[address]-05) Diarrhea Drug Allergy Active Crestor muscle cramps Non Drug Allergy Activ e niacin Niacin([facility] Code:[address]-54) flushed Drug Allergy Active Zetia myalgias Non Drug Allergy Active Multiple PPI's Diarrhea Non Drug Allergy Acti ve ENCOUNTERS from 1934 to 2020-05-11 Encounter Location Date Provider Diagnosis [facility] Urology [address] [place] [address] 11 May Wendy Licona IMMUNIZATIONS Vaccine Route Administration Date Status Influenza [...] Education Language: Question Answer Notes Languages spoken: Georgian Adventism: Question Answer Notes Adventism 08 Nondenominational Sexual Hx: Question Answer Notes Had sex [...] Notes Start Da te End Date Status Aleve 220 MG 1 tablet as needed Orally every 12 hrs Active Tylenol 325 MG 2 tablet as needed Orally prn Active Eye Vitamins 2 capsule Orally Twice a day Active Bactrim DS 800-160 MG 1 tablet Orally Twice a day for 10 day(s) Jan, Not-Taking Magnesium 250 MG 1 tablet with a meal Orally Once a day for 30 day(s) Active Flomax 0.4 MG 1 capsule Orally Once a day for 30 day(s) Active Aspirin EC 81 MG 1 tablet Orally Once a day Active Mucinex 600 MG 1 tablet as needed Orally every 12 hrs Active Vitamin D 2000 UNIT 1 tablet Orally daily Active Vitamin C 500 MG as directed Orally Active Famotidine 40 MG 1 tablet at bedtime Orally Once a day for 90 da y(s) August, Active Cipro 500 MG 1 tablet Orally every 12 hrs for 10 day(s) Mar, Active Fish Oil 1000 MG 1 capsule Orally Once a day Active PROCEDURES No Information RESULTS No Results REASON FOR VISIT urine result MEDICAL (GENERAL) HISTORY Type Description Date Medical [...] History endoscopy 2018 Surgical History L URS Goals Section No Information Health Concerns No Information MEDICAL EQUIPMENT No Information MENTAL STATUS No Information FUNCTIONAL STATUS No Information ASSESSMENTS No Information PLAN OF TREATMENT Medication Medication Name Sig Start Date Stop Date Cipro 500 MG 1 tablet Orally every 12 hrs for 10 day(s) 2019 Next Appt Details Provider Name:Wendy Licona, 2020-05-01 4 09:00:00 AM, [address], [place], [address], Provider Name:Facundo Rivka, 2020-05 08:30:00 AM, [address], [place], [address], Insurance Providers Payer Name Payer Address Payer Phone Insured Name Patient Relati onship to Insured Coverage Start Date Coverage End Date MEDICARE BLUE PPO [address] [facility] [id number] [address] [place] self
--- OUTSIDE RECORDS SUMMARY | 2020-06-19 10:56 | CCD ---
Author Author [facility] Organization [facility] Address Unknown Phone Unavailable Care Team Providers Care Drilling And Production Superintendent Name Role Phone Wendy Licona Unavailable PROBLEMS Type Condition ICD9-CM Code [id number] Code Onset Dates Condition S tatus SNOMED Code Notes Problem Other myositis, unspecified site M60.80 Active 36579474 Problem Encounter for immunization Z23 Active 61082 6002 Problem Vitamin D deficiency, unspecified E55.9 Active 85321833 Problem Iron deficiency anemia, unspecified D50.9 Acti ve 17931456 Problem CKD (chronic kidney disease), stage III N18.3 Active 801999440 Problem Hydronephrosis N13.30 Active 69546978 Problem Obstructive sleep apnea (adult) (pediatric) G47.33 Active 06472782 Problem UTI (urinary tract infection) N39.0 Active 68 464991 Problem 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 Ac tive 585881863 unable to tolate (multiple) PPIs; on H2A Problem Medicare annual wellness visit, subsequent Z00.00 Active 083803012 Problem Dyslipidemia E78.5 Active 671036045 intoleran t oif (multiple) statins Problem Benign enlargement of prostate N40.0 Active 2 81673379 Problem Preop testing Z01.818 Active 084966097 ALLERGIES Allergen (clinical drug ingredient) Drug/Non Drug Allergy do cumented on EMR Reaction Allergy Type Onset Date Status atorvastatin Lipitor(NDC Code:[address]-80) myalgias Drug Allergy Active Multiple statins myalgias Non Drug Allergy Ac tive omeprazole Prilosec(ND Code:[address]-25) Diarrhea Drug Allergy Active Crestor muscle cramps Non Drug Allergy Activ e niacin Niacin([facility] Code:[address]-05) flushed Drug Allergy Active Zetia myalgias Non Drug Allergy Active Multiple PPI's Diarrhea Non Drug Allergy Acti ve ENCOUNTERS from 1934 to 2020-04-06 Encounter Location Date Provider Diagnosis [facility] [address] [place] [address] Mar Wendy Licona IMMUNIZATIONS Vaccine Route Administration Date [...] Education Language: Question Answer Notes Languages spoken: Thai Religious: Question Answer Notes Religious 08 Mormonism Sexual Hx: Question Answer Notes Had sex [...] Information RESULTS No Results REASON FOR VISIT UTI MEDICAL (GENERAL) HISTORY Type Description Date Medical [...] Provider Name:Wendy Licona, 2020-05-01 4 09:00:00 AM, [address], [place], [address], Provider Name:Facundo Rivka, 2020-05 08:30:00 AM, [address], [place], [address], Insurance Providers Payer Name Payer Address Payer Phone Insured Name Patient Relati onship to Insured Coverage Start Date Coverage End Date MEDICARE BLUE PPO [address] [facility] [id number] [address] self
--- OUTSIDE RECORDS SUMMARY | 2020-06-19 10:56 | CCD ---
Author Author [facility] Organization [facility] Address Unknown Phone Unavailable Care Team Providers Care Junior Manufacturing Engineer Name Role Phone Solomon Felipe Unavailable PROBLEMS Type Condition ICD9-CM Code HRV70-ZC Code Onset Dates Condition S tatus SNOMED Code Notes Problem Other myositis, unspecified site M60.80 Active 12889762 Problem Encounter for immunization Z23 Active 30607 6002 Problem Vitamin D deficiency, unspecified E55.9 Active 85287310 Problem Iron deficiency anemia, unspecified D50.9 Acti ve 32456961 Problem CKD (chronic kidney disease), stage III N18.3 Active 840905737 Problem Hydronephrosis N13.30 Active 56670571 Problem Obstructive sleep apnea (adult) (pediatric) G47.33 Active 37051366 Problem UTI (urinary tract infection) N39.0 Active 68 480008 Problem 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 Ac tive 922787798 unable to tolate (multiple) PPIs; on H2A Problem Medicare annual wellness visit, subsequent Z00.00 Active 330802112 Problem Dyslipidemia E78.5 Active 904385063 intoleran t oif (multiple) statins Problem Benign enlargement of prostate N40.0 Active 2 58143432 Problem Preop testing Z01.818 Active 827371905 ALLERGIES Allergen (clinical drug ingredient) Drug/Non Drug Allergy do cumented on EMR Reaction Allergy Type Onset Date Status atorvastatin Lipitor(NDC Code:[address]-18) myalgias Drug Allergy Active Multiple statins myalgias Non Drug Allergy Ac tive omeprazole Prilosec(NDC Code:[address]-33) Diarrhea Drug Allergy Active Crestor muscle cramps Non Drug Allergy Activ e niacin Niacin([facility] Code:[address]-85) flushed Drug Allergy Active Zetia myalgias Non Drug Allergy Active Multiple PPI's Diarrhea Non Drug Allergy Acti ve ENCOUNTERS from 1935 to 2020-05-06 Encounter Location Date Provider Diagnosis [facility] Urology [address] [place] [address] May Solomon Felipe IMMUNIZATIONS Vaccine Route Administration Date Status Influenza [...] Education Language: Question Answer Notes Languages spoken: Hungarian Moravian: Question Answer Notes Moravian 08 Evangelical Sexual Hx: Question Answer Notes Had sex [...] Information RESULTS No Results REASON FOR VISIT appt MEDICAL (GENERAL) HISTORY Type Description Date Medical [...] Provider Name:Wendy Licona, 2020-05-01 4 09:00:00 AM, [address], [place], [address], Provider Name:Facundo Rivka, 2020-05 08:30:00 AM, [address], [place], [address], Insurance Providers Payer Name Payer Address Payer Phone Insured Name Patient Relati onship to Insured Coverage Start Date Coverage End Date MEDICARE BLUE PPO [address] [facility] [address] [address] self
--- OUTSIDE RECORDS SUMMARY | 2020-06-19 10:56 | CCD ---
Author Author [facility] Organization [facility] Address Unknown Phone Unavailable Care Team Providers Care Mechanical Systems Engineer Name Role Phone Wendy Licona Unavailable PROBLEMS Type Condition ICD9-CM Code GUP02-KB Code Onset Dates Condition S tatus SNOMED Code Notes Problem Other myositis, unspecified site M60.80 Active 09873061 Problem Encounter for immunization Z23 Active 30232 6002 Problem Vitamin D deficiency, unspecified E55.9 Active 49268202 Problem Iron deficiency anemia, unspecified D50.9 Acti ve 85200654 Problem CKD (chronic kidney disease), stage III N18.3 Active 074934137 Problem Hydronephrosis N13.30 Active 22448159 Problem Obstructive sleep apnea (adult) (pediatric) G47.33 Active 66225396 Problem UTI (urinary tract infection) N39.0 Active 68 948376 Problem 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 Ac tive 475071194 unable to tolate (multiple) PPIs; on H2A Problem Medicare annual wellness visit, subsequent Z00.00 Active 497469539 Problem Dyslipidemia E78.5 Active 626087684 intoleran t oif (multiple) statins Problem Benign enlargement of prostate N40.0 Active 2 32974299 Problem Preop testing Z01.818 Active 751454506 ALLERGIES Allergen (clinical drug ingredient) Drug/Non Drug Allergy do cumented on EMR Reaction Allergy Type Onset Date Status atorvastatin Lipitor(NDC Code:[address]-50) myalgias Drug Allergy Active Multiple statins myalgias Non Drug Allergy Ac tive omeprazole Prilosec(NDC Code:[address]-57) Diarrhea Drug Allergy Active Crestor muscle cramps Non Drug Allergy Activ e niacin Niacin([facility] Code:[address]-60) flushed Drug Allergy Active Zetia myalgias Non Drug Allergy Active Multiple PPI's Diarrhea Non Drug Allergy Acti ve ENCOUNTERS from 1934 to 2020-05-11 Encounter Location Date Provider Diagnosis [facility] [address] [place] [address] May Wendy Licona UTI (urinary tract infection) N39.0 and Dysuria R30.0 IMMUNIZATIONS Vaccine Route Administration Date Status Influenza [...] Education Language: Question Answer Notes Languages spoken: Luxembourger Latter-Day: Question Answer Notes Latter-Day 08 Adventism Sexual Hx: Question Answer Notes Had sex [...] a day Active PROCEDURES No Information RESULTS Component Value Reference Range UA URINALYSIS Reviewed date:05/06/2020 08:16:42 Interpretation: Performing Lab:[facility] LABORATORY [address] [address] , ,[facility] URINE CULTURE Reviewed date:05/11/2020 08:48:43 Interpretation: Performing Lab:[facility] LABORATORY [address] [facility] [address] , ,[facility] REASON FOR VISIT Urinary Frequency/Urgency MEDICAL (GENERAL) HISTORY Type Description Date Medical History BPH bx Medical History hyperlipidemia-- intolerant of multiple statins and Zetia Medical History allergic rhinitis Medical History prediabetes/IFG Medical History metabolic syndrome Medical History RITA+ CPAP 05/2008 Medical History Fe defic anemia 02/07--neg G I w/u, transfused 2 units: Golden's on EGD; neg capsule endo, neg colonoscopy; iron studies normal 2014,2015 Medical History Golden's esophagus EGD, + b [...] History EGD (+ metaplastic changes on bx) , 04/10,07/13 Surgical History capsule endoscopy (neg) 2009 [...] Treatment Notes Treatm ent Clinical Notes May, UTI (urinary tract infection) (ICD-10 - N39.0) May, Dysuria (ICD-10 - R30.0) PLAN OF TREATMENT Medication Medication Name Sig Start Date Stop Date Cipro 500 MG 1 tablet Orally every 12 hrs for 10 day(s) 2019 Next Appt Details Provider Name:Wendy Licona, 2020-05-01 4 09:00:00 AM, [address], [place], [address], Provider Name:Facundo Tineo, 2020-05 08:30:00 AM, [address] , [place], [address], Insurance Providers Payer Name Payer Address Payer Phone Insured Name Patient Relati onship to Insured Coverage Start Date Coverage End Date MEDICARE BLUE PPO [address] [facility] [address] [address]
--- OUTSIDE RECORDS SUMMARY | 2020-06-19 10:56 | CCD ---
Author Author [facility] Organization [facility] Address Unknown Phone Unavailable Support Name Relationship Address Phone GEORGINA MENDOZA Next Of Kin [address] [place] [address] GEORGINA RCIHTER Next [facility] [place] [place] [address] [facility] Next Of Kin [address] [place] [address] [employer] [address] Unavailable ESTELITA MENDOZA ECON [address] [place] [address] [phone] Re-disclosure Warning The records that you are about to access may contain information from federally-assisted alcohol or drug abuse programs. If such information is present, then the following federally mandated warning applies: This information has been disclosed to you from records protected by federal confidentiality rules (42 CFR part 2). The federal rules prohibit you from making any further disclosure of this information unless further disclosure is expressly permitted by the written consent of the person to whom it pertains or as otherwise permitted by 42 CFR part 2. A general authorization for the release of medical or other information is NOT sufficient for this purpose. The Federal rules restrict any use of the information to criminally investigate or prosecute any alcohol or drug abuse patient.The records that you are about to access may contain highly sensitive health information, the redisclosure of which is protected by Article 27-F of the [facility] Public Health law. If you continue you may have access to information: Regarding HIV / AIDS; Provided by facilities licensed or operated by the [facility] Office of Mental Health; or Provided by the [facility] Office for People With Developmental Disabilities. If such information is present, then the following [facility] mandated warning applies: This information has been disclosed to you from confidential records which are protected by state law. State law prohibits you from making any further disclosure of this information without the specific written consent of the person to whom it pertains, or as otherwise permitted by law. Any unauthorized further disclosure in violation of state law may result in a fine or alf sentence or both. A general authorization for the release of medical or other information is NOT sufficient authorization for further disc losure. Allergies and Adverse Reactions Type Description Substance Reaction Status Data Source(s ) Drug allergy Prilosec Omeprazole Diarrhea Active eCW1 ([facility]) Drug allergy Lipitor atorvastatin myalgias Active eCW1 ([facility]) Drug allergy Niacin Niacin flushed Active eCW1 ([facility]) Crestor Crestor Rosuvastatin calcium 5 MG Oral Tablet [Cr estor] muscle cramps Active eCW1 ([facility]) Multiple PPI's Multiple PPI's Multiple PPI's Diarrhea Active eC W1 ([facility]) Multiple statins Multiple statins Multiple statins myalgias Active eCW1 ([facility]) Zetia Zetia ezetimibe 10 MG Oral Tablet [Zetia] myalgias Active eCW1 ([facility]) Crestor Crestor Rosuvastatin calcium 5 MG Oral Tablet [Cr estor] muscle cramps Active eCW1 ([facility]) Multiple PPI's Multiple PPI's Multiple PPI's Diarrhea Active eC W1 ([facility]) Multiple statins Multiple statins Multiple statins myalgias Active eCW1 ([facility]) Zetia Zetia ezetimibe 10 MG Oral Tablet [Zetia] myalgias Active eCW1 ([facility]) Family History Family Member Name Family Member Gender Family Member Status Date o f Status Description Data Source(s) Unknown Unknown Problem MED[facility] Unknown Male Problem MEDENT ([facility] () Encounters Encounter Providers Location Date Indications Data Source(s ) Unknown [address] [facility] [place] [address] 06/16/2020 12:00:00 AM EST eCW1 ([facility]) [place] [address] [facility] [place] [address] 05/29/2020 12:00:00 AM EST eCW1 ([facility]) Office Visit, Est Pt., Level 4 PC [address] [place] [address] 05/21/2020 12:00:00 AM EST eCW1 ([facility]) [place] [address] [facility] [address] 05/14/2020 12:00:00 AM EST eCW1 ([facility]) [place] [address] [facility] [address] 05/11/2020 12:00:00 AM EST eCW1 ([facility]) [place] [address] [facility] [address] 05/05/2020 12:00:00 AM EST eCW1 ([facility]) [place] [address] [facility] [address] 05/04/2020 12:00:00 AM EST eCW1 ([facility]) [place] [address] [facility] [address] 04/06/2020 12:00:00 AM EST eCW1 ([facility]) [place] [address] [facility] [address] 03/30/2020 12:00:00 AM EST eCW1 ([facility]) [place] [address] [facility] [address] 03/12/2020 12:00:00 AM EST eCW1 ([facility]) [place] [address] [facility] [address] 03/10/2020 12:00:00 AM EST eCW1 ([facility]) [place] [address] [facility] [address] 03/06/2020 12:00:00 AM EST eCW1 ([facility]) [place] [address] [facility] [address] 03/05/2020 12:00:00 AM EST eCW1 ([facility]) [place] [address] [facility] [address] 02/28/2020 12:00:00 AM EDT eCW1 ([facility]) [place] [address] [facility] [address] 02/27/2020 12:00:00 AM EDT eCW1 ([facility]) [place] [address] [facility] [address] 02/21/2020 12:00:00 AM EDT eCW1 [facility]) [place] [address] [facility] [address] 02/04/2020 12:00:00 AM EDT eCW1 ([facility]) [place] [address] [facility] [address] 02/03/2020 12:00:00 AM EDT eCW1 ([facility]) [place] [address] [facility] [address] 11/14/2019 12:00:00 AM EDT eCW1 ([facility]) [facility] [place] [address] [facility] [address] 11/08/2019 12:00:00 AM EDT eCW1 ([facility]) [facility] [place] [address] [facility] [address] 09/02/2019 12:00:00 AM EDT eCW1 ([facility]) [facility] [place] [address] [facility] [address] 08/01/2019 12:00:00 AM EDT eCW1 ([facility]) [facility] [place] [address] [facility] [address] 06/04/2019 12:00:00 AM EST eCW1 ([facility]) [facility] [place] [address] [facility] [address] 06/03/2019 12:00:00 AM EST eCW1 ([facility]) Immunizations Vaccine Date Status Description Data Source(s) INFLUENZA VIRUS VACCINE QUADRIVAL SPLIT 2019-21(65 YR UP)/PF 01/11/2020 12:00:00 AM EDT completed [facility] Medications Medication Brand Name Start Date Product Form Dose Route Admi nistrative Instructions Pharmacy Instructions Status Indications Reaction Description Data Source(s) 500 mg 05/17/2020 12:00:00 AM EST tablet 28 TAKE ONE TABLET BY MOUTH EVERY 12 HOURS FOR 14 DAYS TAKE ONE TABLET BY MOUTH EVERY 12 HOURS FOR 14 DAYS SO LD: 05/19/2020 [facility] 500 mg 05/11/2020 12:00:00 AM EST tablet 20 TAKE ONE TABLET BY MOUTH EVERY 12 HOURS FOR 10 DAYS TAKE ONE TABLET BY MOUTH EVERY 12 HOURS FOR 10 DAYS SO LD: 05/11/2020 [facility] Ciprofloxacin 500 MG Oral Tablet [Cipro] Cipro 500 MG Cipro 500 MG 04/02/2020 12:00:00 AM EST 1.0 {tablet} active Ci pro 500 MG eCW1 ([facility]) Ciprofloxacin 500 MG Oral Tablet [Cipro] Cipro 500 MG Cipro 500 MG 04/02/2020 12:00:00 AM EST 1.0 {tablet} active Ci pro 500 MG eCW1 ([facility]) 500 mg 04/02/2020 12:00:00 AM EST tablet 20 TAKE 1 TABLET BY MOUTH EVERY 12 HOURS FOR 10 DAYS TAKE 1 TABLET BY MOUTH EVERY 12 HOURS FOR 10 DAYS SOLD : 04/02/2020 [facility] Ciprofloxacin 500 MG Oral Tablet [Cipro] Cipro 500 MG Cipro 500 MG 04/02/2020 12:00:00 AM EST 1.0 {tablet} active Ci pro 500 MG eCW1 ([facility]) Ciprofloxacin 500 MG Oral Tablet [Cipro] Cipro 500 MG Cipro 500 MG 04/02/2020 12:00:00 AM EST 1.0 {tablet} active Ci pro 500 MG eCW1 ([facility]) Ciprofloxacin 500 MG Oral Tablet [Cipro] Cipro 500 MG Cipro 500 MG 04/02/2020 12:00:00 AM EST 1.0 {tablet} active Ci pro 500 MG eCW1 ([facility]) Sulfamethoxazole 800 MG / Trimethoprim 1 60 MG Oral Tablet [Bactrim] Bactrim DS 800-160 MG Bactrim DS 800-160 MG 02/28/2020 12:00:00 AM EDT 1.0 {table t} active Bactrim DS 800-160 MG eCW1 ( [facility]) Sulfamethoxazole 800 MG / Trimethoprim 1 60 MG Oral Tablet [Bactrim] Bactrim DS 800-160 MG Bactrim DS 800-160 MG 02/28/2020 12:00:00 AM EDT 1.0 {table t} active Bactrim DS 800-160 MG eCW1 ( [facility]) Sulfamethoxazole 800 MG / Trimethoprim 1 60 MG Oral Tablet [Bactrim] Bactrim DS 800-160 MG Bactrim DS 800-160 MG 02/28/2020 12:00:00 AM EDT 1.0 {table t} suspended Bactrim DS 800-160 MG eCW1 ( [facility]) Sulfamethoxazole 800 MG / Trimethoprim 1 60 MG Oral Tablet [Bactrim] Bactrim DS 800-160 MG Bactrim DS 800-160 MG 02/28/2020 12:00:00 AM EDT 1.0 {table t} suspended Bactrim DS 800-160 MG eCW1 ( [facility]) Sulfamethoxazole 800 MG / Trimethoprim 1 60 MG Oral Tablet [Bactrim] Bactrim DS 800-160 MG Bactrim DS 800-160 MG 02/28/2020 12:00:00 AM EDT 1.0 {table t} active Bactrim DS 800-160 MG eCW1 ( [facility]) Sulfamethoxazole 800 MG / Trimethoprim 1 60 MG Oral Tablet [Bactrim] Bactrim DS 800-160 MG Bactrim DS 800-160 MG 02/28/2020 12:00:00 AM EDT 1.0 {table t} active Bactrim DS 800-160 MG eCW1 ( [facility]) Sulfamethoxazole 800 MG / Trimethoprim 1 60 MG Oral Tablet [Bactrim] Bactrim DS 800-160 MG Bactrim DS 800-160 MG 02/28/2020 12:00:00 AM EDT 1.0 {table t} active Bactrim DS 800-160 MG eCW1 ( [facility]) Sulfamethoxazole 800 MG / Trimethoprim 1 60 MG Oral Tablet [Bactrim] Bactrim DS 800-160 MG Bactrim DS 800-160 MG 02/28/2020 12:00:00 AM EDT 1.0 {table t} suspended Bactrim DS 800-160 MG eCW1 ( [facility]) Sulfamethoxazole 800 MG / Trimethoprim 160 MG Oral Tab let 800-160 mg SULFAMETHOXAZOLE/TRIMETHOPRIM 02/28/2020 12:00:00 AM EDT tablet 20 TAKE ONE TABLET BY MOUTH TWICE A DAY FOR 10 DAYS TAKE ONE TABLET BY MOUTH TWICE A DAY FOR 10 DAYS SOLD: 02/28/2020 [facility] Sulfamethoxazole 800 MG / Trimethoprim 1 60 MG Oral Tablet [Bactrim] Bactrim DS 800-160 MG Bactrim DS 800-160 MG 02/28/2020 12:00:00 AM EDT 1.0 {table t} suspended Bactrim DS 800-160 MG eCW1 ( [facility]) Sulfamethoxazole 800 MG / Trimethoprim 1 60 MG Oral Tablet [Bactrim] Bactrim DS 800-160 MG Bactrim DS 800-160 MG 02/28/2020 12:00:00 AM EDT 1.0 {table t} suspended Bactrim DS 800-160 MG eCW1 ( [facility]) Sulfamethoxazole 800 MG / Trimethoprim 1 60 MG Oral Tablet [Bactrim] Bactrim DS 800-160 MG Bactrim DS 800-160 MG 02/28/2020 12:00:00 AM EDT 1.0 {table t} suspended Bactrim DS 800-160 MG eCW1 ( [facility]) Sulfamethoxazole 800 MG / Trimethoprim 1 60 MG Oral Tablet [Bactrim] Bactrim DS 800-160 MG Bactrim DS 800-160 MG 02/28/2020 12:00:00 AM EDT 1.0 {table t} suspended Bactrim DS 800-160 MG eCW1 ( [facility]) 0.4 mg 01/21/2020 12:00:00 AM EDT capsule 90 TAKE ONE CAPSULE BY MOUTH EVERY DAY 1/2 HOUR AFTER DINNER TAKE ONE CAPSULE BY MOUTH EVERY DAY 1/2 HOUR AFTER DINNER SOLD: 01/21/2020 [facility] 0.4 mg 01/21/2020 12:00:00 AM EDT capsule 90 TAKE ONE CAPSULE BY MOUTH EVERY DAY 1/2 HOUR AFTER DINNER TAKE ONE CAPSULE BY MOUTH EVERY DAY 1/2 HOUR AFTER DINNER SOLD: 05/02/2020 [facility] 500 mg 01/19/2020 12:00:00 AM EDT tablet 14 TAKE ONE TABLET BY MOUTH TWICE A DAY TAKE ONE TABLET BY MOUTH TWICE A DAY SOLD: 01/19/2020 [facility] 40 mg 09/03/2019 12:00:00 AM EDT tablet 90 TAKE ONE TABLET BY MOUTH AT BEDTIME TAKE ONE TABLET BY MOUTH AT BEDTIME SOLD: 03/03/2020 [facility] 40 mg 09/03/2019 12:00:00 AM EDT tablet 90 TAKE ONE TABLET BY MOUTH AT BEDTIME TAKE ONE TABLET BY MOUTH AT BEDTIME SOLD: 06/03/2020 [facility] 40 mg 09/03/2019 12:00:00 AM EDT tablet 90 TAKE ONE TABLET BY MOUTH AT BEDTIME TAKE ONE TABLET BY MOUTH AT BEDTIME SOLD: 12/03/2019 [facility] 40 mg 09/03/2019 12:00:00 AM EDT tablet 90 TAKE ONE TABLET BY MOUTH AT BEDTIME TAKE ONE TABLET BY MOUTH AT BEDTIME SOLD: 09/04/2019 [facility] Famotidine 40 MG Oral Tablet Famotidine 40 MG 09/02/2019 12:00:00 A M EDT 1.0 {tablet_at_bedtime} active Famotidine 4 0 MG eCW1 ([facility]) Famotidine 40 MG Oral Tablet Famotidine 40 MG 09/02/2019 12:00:00 A M EDT 1.0 {tablet_at_bedtime} active Famotidine 4 0 MG eCW1 ([facility]) Famotidine 40 MG Oral Tablet Famotidine 40 MG 09/02/2019 12:00:00 A M EDT 1.0 {tablet_at_bedtime} active Famotidine 4 0 MG eCW1 ([facility]) Famotidine 40 MG Oral Tablet Famotidine 40 MG 09/02/2019 12:00:00 A M EDT 1.0 {tablet_at_bedtime} active Famotidine 4 0 MG eCW1 ([facility]) Famotidine 40 MG Oral Tablet Famotidine 40 MG 09/02/2019 12:00:00 A M EDT 1.0 {tablet_at_bedtime} active Famotidine 4 0 MG eCW1 ([facility]) Famotidine 40 MG Oral Tablet Famotidine 40 MG 09/02/2019 12:00:00 A M EDT 1.0 {tablet_at_bedtime} active Famotidine 4 0 MG eCW1 ([facility]) Famotidine 40 MG Oral Tablet Famotidine 40 MG 09/02/2019 12:00:00 A M EDT 1.0 {tablet_at_bedtime} active Famotidine 4 0 MG eCW1 ([facility]) Famotidine 40 MG Oral Tablet Famotidine 40 MG 09/02/2019 12:00:00 A M EDT 1.0 {tablet_at_bedtime} active Famotidine 4 0 MG eCW1 ([facility]) Famotidine 40 MG Oral Tablet Famotidine 40 MG 09/02/2019 12:00:00 A M EDT 1.0 {tablet_at_bedtime} active Famotidine 4 0 MG eCW1 ([facility]) Famotidine 40 MG Oral Tablet Famotidine 40 MG 09/02/2019 12:00:00 A M EDT 1.0 {tablet_at_bedtime} active Famotidine 4 0 MG eCW1 ([facility]) Famotidine 40 MG Oral Tablet Famotidine 40 MG 09/02/2019 12:00:00 A M EDT 1.0 {tablet_at_bedtime} active Famotidine 4 0 MG eCW1 ([facility]) Famotidine 40 MG Oral Tablet Famotidine 40 MG 09/02/2019 12:00:00 A M EDT 1.0 {tablet_at_bedtime} active Famotidine 4 0 MG eCW1 ([facility]) Famotidine 40 MG Oral Tablet Famotidine 40 MG 09/02/2019 12:00:00 A M EDT 1.0 {tablet_at_bedtime} active Famotidine 4 0 MG eCW1 ([facility]) Famotidine 40 MG Oral Tablet Famotidine 40 MG 09/02/2019 12:00:00 A M EDT 1.0 {tablet_at_bedtime} active Famotidine 4 0 MG eCW1 ([facility]) Famotidine 40 MG Oral Tablet Famotidine 40 MG 09/02/2019 12:00:00 A M EDT 1.0 {tablet_at_bedtime} active Famotidine 4 0 MG eCW1 ([facility]) Famotidine 40 MG Oral Tablet Famotidine 40 MG 09/02/2019 12:00:00 A M EDT 1.0 {tablet_at_bedtime} active Famotidine 4 0 MG eCW1 ([facility]) Famotidine 40 MG Oral Tablet Famotidine 40 MG 09/02/2019 12:00:00 A M EDT 1.0 {tablet_at_bedtime} active Famotidine 4 0 MG eCW1 ([facility]) Famotidine 40 MG Oral Tablet Famotidine 40 MG 09/02/2019 12:00:00 A M EDT 1.0 {tablet_at_bedtime} active Famotidine 4 0 MG eCW1 ([facility]) Famotidine 40 MG Oral Tablet Famotidine 40 MG 09/02/2019 12:00:00 AM E DT active 1 tablet at bedtime eCW1 ([facility]) Famotidine 40 MG Oral Tablet Famotidine 40 MG 09/02/2019 12:00:00 A M EDT 1.0 {tablet_at_bedtime} active Famotidine 4 0 MG eCW1 ([facility]) 875 mg 06/04/2019 12:00:00 AM EST tablet 28 TAKE 1 TABLET BY MOUTH EVERY 12 HOURS FOR 14 DAYS TAKE 1 TABLET BY MOUTH EVERY 12 HOURS FOR 14 DAYS SOLD : 06/04/2019 [facility] Amoxicillin 875 MG Oral Tablet Amoxicillin 875 MG 06/04/2019 12:00: 00 AM EST active 1 tablet eCW1 ([facility]) Amoxicillin 875 MG Oral Tablet Amoxicillin 875 MG 06/04/2019 12:00: 00 AM EST active 1 tablet eCW1 ([facility]) 300 mg 03/26/2019 12:00:00 AM EST tablet 90 TAKE ONE TABLET BY MOUTH EVERY DAY TAKE ONE TABLET BY MOUTH EVERY DAY SOLD: 06/26/2019 [facility] Insurance Providers Payer name Policy type / Coverage type Policy ID Covered green party ID Covered green party's relationship to marshall Policy Marshall Plan Information MEDICARE BLUE PPO 306 [id number] SP [id number] MEDICARE BLUE PPO 306 [id number] SP [id number] MEDICARE BLUE PPO 306 [id number] SP [id number] EXCELLUS BCBS B [id number] S [id number] EXCELLUS BCBS B [id number] S [id number] ANSI-Medicare Part B [id number] ANSI-Medicare Part B [id number] [place] Med[place] Part B [id number] Self [id number] Medicare - NGS Medicare Primary [id number] Self [id number] Medicare Blue Ppo Commercial [id number] Self [id number] MEDICARE BLUE PPO 306 [id number] SP [id number] MEDICARE BLUE PPO 306 [id number] SP [id number] BS Medicare Ppo Commercial [id number] Self [id number] BC/[place] Of [place] Medigap Part B [id number] Self [id number] Medicare - [place]GS Medicare Primary [id number] Self [id number] Medicare Blue Ppo Commercial [id number] Self [id number] MEDICARE BLUE PPO 306 [id number] SP [id number] MEDICARE BLUE PPO 306 [id number] SP [id number] BCBS OF [place] WATN 306/806 [id number] SP [id number] MEDICARE [id number] SP [id number] A BC/[place] OF [place] S [id number] S [id number] MEDICARE P [id number] S [id number] A MEDICARE BLUE PPO 306 [id number] SP [id number] MEDICARE BLUE PPO 306 UNAVAILABLE SP UNAVAILABLE [id number] A [id number] Problems, Conditions, and Diagnoses Code Display Name Description Problem Type Effective Dates Data Source(s) Z01.818 Pre-procedure evaluation check Preop testing Problem 02/21/2020 12:00:00 AM EDT eCW1 ([facility]) N39.0 Urinary tract infectious disease UTI (urinary tract in fection) Problem 02/21/2020 12:00:00 AM EDT eCW1 ([facility]) N13.30 Hydronephrosis Hydronephrosis Problem 02/21/2020 12:00: 00 AM EDT eCW1 ([facility]) 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 Pt. Level 2 08/01/2019 12:00:00 AM E DT eCW1 ([facility]) Office Visit, Est Pt., Level 3 PC 06/04/2019 12:00:00 AM EST eCW1 ([facility]) Results ID Date Data Source [id number] 06/14/2020 09:30:00 AM EST [facility] Name Value Range Interpretation Code Description Data Iram rce(s) Supporting Document(s) SARS coronavirus 2 RNA Not Detected [facility] [place] This lab was ordered by [facility] and reported by [facility]. ID Date Data Source PT & APTT 05/21/2020 12:00:00 AM EST eCW1 ([facility]) Name Value Range Interpretation Code Description Data Iram rce(s) Supporting Document(s) 13.4 12.5-14.3 eCW1 ([facility]) 38.8 24.2-38.5 eCW1 ([facility]) 1.00 eCW1 ([facility]) ID Date Data Source Basic Metabolic Profile (BMP) 05/21/2020 12:00:00 AM EST eCW 1 ([facility]) Name Value Range Interpretation Code Description Data Iram rce(s) Supporting Document(s) 83 70-100 GLUCOSE, FASTING eCW1 ([facility]) 25 7-18 BLOOD UREA NITROGEN eCW1 ([facility]) 4.7 3.5-5.1 POTASSIUM SERUM eCW1 ([facility]) 143 136-145 SODIUM LEVEL eCW1 ([facility]) 43.6 >35 GLOMERULAR FILTRATION RATE eCW 1 ([facility]) 1.61 0.70-1.30 CREATININE FOR GFR eCW1 ([facility]) 30 21-32 CARBON DIOXIDE LEVEL eCW1 ([facility]) 9.7 8.8-10.2 CALCIUM LEVEL eCW1 ([facility]) 110 98-107 CHLORIDE LEVEL eCW1 ([facility]) ID Date Data Source CBC - Complete Blood Count 05/21/2020 12:00:00 AM EST eCW1 ( [facility]) Name Value Range Interpretation Code Description Data Iram rce(s) Supporting Document(s) 4.26 4.30-6.10 eCW1 ([facility]) 7.0 4.0-10.0 eCW1 ([facility]) 40.4 42.0-52.0 eCW1 ([facility]) 31.2 32.0-36.5 eCW1 ([facility]) 94.8 80.0-96.0 eCW1 ([facility]) 12.6 13.5-17.5 eCW1 ([facility]) 29.6 27.0-33.0 eCW1 ([facility]) 15.9 11.5-14.5 eCW1 ([facility]) 250 150-450 eCW1 ([facility]) ID Date Data Source URINE CULTURE 05/05/2020 12:00:00 AM EST eCW1 ([facility]) Name Value Range Interpretation Code Description Data Iram rce(s) Supporting Document(s) URINE CULTURE eCW1 ([facility]) ID Date Data Source UA URINALYSIS 05/05/2020 12:00:00 AM EST eCW1 ([facility]) Name Value Range Interpretation Code Description Data Iram rce(s) Supporting Document(s) UA URINALYSIS eCW1 ([facility]) ID Date Data Source [id number] 02/29/2020 11:00:00 AM EDT [facility] Name Value Range Interpretation Code Description Data Iram rce(s) Supporting Document(s) SARS coronavirus 2 RNA [facility] This lab was ordered by [facility] and reported by [facility]. ID Date Data Source [facility] Chest, 2 view (PA\Lat) 02/26/2020 11:27:56 AM EDT eCW1 ( [facility]) Name Value Range Interpretation Code Description Data Iram rce(s) Supporting Document(s) eCW1 ([facility]) ID Date Data Source Electrocardiogram (EKG) 02/26/2020 04:03:04 AM EDT eCW1 ([facility]) Name Value Range Interpretation Code Description Data Iram rce(s) Supporting Document(s) eCW1 ([facility]) Procedure Social History Code Duration Value Status Description Data Source(s ) Smoking 05/21/2020 12:00:00 AM EST Former Smoker completed Former Smoker eCW1 ([facility]) Smoking 05/21/2020 12:00:00 AM EST Former Smoker completed Former Smoker eCW1 ([facility]) Smoking 05/21/2020 12:00:00 AM EST Former Smoker completed Former Smoker eCW1 ([facility]) Smoking 05/14/2020 12:00:00 AM EST Former Smoker completed Former Smoker eCW1 ([facility]) Smoking 03/12/2020 12:00:00 AM EST Former Smoker completed Former Smoker eCW1 ([facility]) Smoking 03/12/2020 12:00:00 AM EST Former Smoker completed Former Smoker eCW1 ([facility]) Smoking 03/12/2020 12:00:00 AM EST Former Smoker completed Former Smoker eCW1 ([facility]) Smoking 03/12/2020 12:00:00 AM EST Former Smoker completed Former Smoker eCW1 ([facility]) Smoking 03/12/2020 12:00:00 AM EST Former Smoker completed Former Smoker eCW1 ([facility]) Smoking 03/12/2020 12:00:00 AM EST Former Smoker completed Former Smoker eCW1 ([facility]) Smoking 03/12/2020 12:00:00 AM EST Former Smoker completed Former Smoker eCW1 ([facility]) Smoking 02/27/2020 12:00:00 AM EDT Former Smoker completed Former Smoker eCW1 ([facility]) Smoking 02/27/2020 12:00:00 AM EDT Former Smoker completed Former Smoker eCW1 ([facility]) Smoking 02/27/2020 12:00:00 AM EDT Former Smoker completed Former Smoker eCW1 ([facility] [facility]) Smoking 02/27/2020 12:00:00 AM EDT Former Smoker completed Former Smoker eCW1 ([facility]) Smoking 02/27/2020 12:00:00 AM EDT Former Smoker completed Former Smoker eCW1 ([facility]) Smoking 02/03/2020 12:00:00 AM EDT Former Smoker completed Former Smoker eCW1 ([facility]) Smoking 02/03/2020 12:00:00 AM EDT Former Smoker completed Former Smoker eCW1 ([facility]) Smoking 11/14/2019 12:00:00 AM EDT Former Smoker completed Former Smoker eCW1 ([facility]) Vital Signs ID Date Data Source UNK Name Value Range Interpretation Code Description Data Source(s) Diastolic blood pressure 70 mm[Hg] 70 mm[Hg] eCW1 ([facility]) Systolic blood pressure 138 mm[Hg] 138 mm[Hg] e CW1 ([facility]) Body temperature 97.6 [degF] 97.6 [degF] eCW1 ( [facility]) Respiratory rate 18 /min 18 /min eCW1 ([facility]) Heart rate 88 /min 88 /min eCW[facility] Body mass index (BMI) [Ratio] 25.69 kg/m2 25.69 kg/m2 eCW1 ([facility]) Body height 69 [in_i] 69 [in_i] eCW1 ([facility]) Body weight 174 [lb_av] 174 [lb_av] eCW1 ([facility]) Diastolic blood pressure 72 mm[Hg] 72 mm[Hg] eCW1 ([facility]) Systolic blood pressure 122 mm[Hg] 122 mm[Hg] e CW1 ([facility]) Respiratory rate 18 /min 18 /min eCW1 ([facility]) Heart rate 91 /min 91 /min eCW1 ([facility]) Body mass index (BMI) [Ratio] 25.69 kg/m2 25.69 kg/m2 eCW1 ([facility]) Body height 69 [in_i] 69 [in_i] eCW1 ([facility]) Body weight 174 [lb_av] 174 [lb_av] eCW1 ([facility]) Body temperature 97.6 [degF] 97.6 [degF] eCW1 ( [facility]) Respiratory rate 18 /min 18 /min eCW1 ([facility]) Heart rate 53 /min 53 /min eCW1 ([facility]) Body mass index (BMI) [Ratio] 25.99 kg/m2 25.99 kg/m2 eCW1 ([facility]) Body height 69 [in_i] 69 [in_i] eCW1 ([facility]) Body weight 176 [lb_av] 176 [lb_av] eCW1 ([facility]) Diastolic blood pressure 78 mm[Hg] 78 mm[Hg] eCW1 ([facility]) Systolic blood pressure 110 mm[Hg] 110 mm[Hg] e CW1 ([facility]) Body temperature 98.0 [degF] 98.0 [degF] eCW1 ( [facility]) Respiratory rate 18 /min 18 /min eCW1 ([facility]) Heart rate 84 /min 84 /min eCW1 ([facility]) Body mass index (BMI) [Ratio] 26.14 kg/m2 26.14 kg/m2 eCW1 ([facility]) Body height 69 [in_i] 69 [in_i] eCW1 ([facility]) Body weight 177 [lb_av] 177 [lb_av] eCW1 ([facility]) Diastolic blood pressure mm[Hg] eCW1 ([facility]) Systolic blood pressure 128 mm[Hg] 128 mm[Hg] e CW1 ([facility]) Body temperature 96.8 [degF] 96.8 [degF] eCW1 ( [facility]) Respiratory rate 17 /min 17 /min eCW1 ([facility]) Heart rate 86 /min 86 /min eCW1 ([facility]) Body mass index (BMI) [Ratio] 26.40 kg/m2 26.40 kg/m2 eCW1 ([facility]) Body height 69 [in_i] 69 [in_i] eCW1 ([facility]) Body weight 178.8 [lb_av] 178.8 [lb_av] eCW1 ([facility]) Diastolic blood pressure 84 mm[Hg] 84 mm[Hg] eCW1 ([facility]) Systolic blood pressure 134 mm[Hg] 134 mm[Hg] e CW1 ([facility]) Body temperature 97.2 [degF] 97.2 [degF] eCW1 ( [facility]) Respiratory rate 18 /min 18 /min eCW1 ([facility]) Heart rate 77 /min 77 /min eCW1 ([facility]) Body mass index (BMI) [Ratio] 26.34 kg/m2 26.34 kg/m2 eCW1 ([facility]) Body height 69 [in_i] 69 [in_i] eCW1 ([facility]) Body weight 178.4 [lb_av] 178.4 [lb_av] eCW1 ([facility]) Diastolic blood pressure 74 mm[Hg] 74 mm[Hg] eCW1 ([facility]) Systolic blood pressure 138 mm[Hg] 138 mm[Hg] e CW1 ([facility]) Body temperature 97.4 [degF] 97.4 [degF] eCW1 ( [facility]) Respiratory rate 18 /min 18 /min eCW1 ([facility]) Heart rate 77 /min 77 /min eCW1 ([facility] Body mass index (BMI) [Ratio] 26.73 kg/m2 26.73 kg/m2 eCW1 ([facility]) Body height 69 [in_i] 69 [in_i] eCW1 ([facility]) Body weight 181 [lb_av] 181 [lb_av] eCW1 ([facility]) Diastolic blood pressure 76 mm[Hg] 76 mm[Hg] eCW1 ([facility]) Systolic blood pressure 132 mm[Hg] 132 mm[Hg] e CW1 ([facility]) Body temperature 98.1 [degF] 98.1 [degF] eCW1 ( [facility]) Respiratory rate 18 /min 18 /min eCW1 ([facility]) Heart rate 89 /min 89 /min eCW1 ([facility] Body mass index (BMI) [Ratio] 27.17 kg/m2 27.17 kg/m2 eCW1 ([facility]) Body height 69 [in_us] 69 [in_us] eCW1 ([facility]) Body weight Measured 184 [lb_av] 184 [lb_av] eC W1 ([facility]) Patient Treatment Plan of Care Planned Activity Planned Date Details Description Data Source (s) Ciprofloxacin 500 MG Oral Tablet [Cipro] 04/02/2020 12:00:00 AM EST eCW1 ([facility]) Ciprofloxacin 500 MG Oral Tablet [Cipro] 04/02/2020 12:00:00 AM EST eCW1 ([facility]) Ciprofloxacin 500 MG Oral Tablet [Cipro] 04/02/2020 12:00:00 AM EST eCW1 ([facility]) Ciprofloxacin 500 MG Oral Tablet [Cipro] 04/02/2020 12:00:00 AM EST eCW1 ([facility]) Ciprofloxacin 500 MG Oral Tablet [Cipro] 04/02/2020 12:00:00 AM EST eCW1 ([facility]) Sulfamethoxazole 800 MG / Trimethoprim 160 MG Oral Tab let [Bactrim] 02/28/2020 12:00:00 AM EDT eCW1 ([facility]) Sulfamethoxazole 800 MG / Trimethoprim 160 MG Oral Tab let [Bactrim] 02/28/2020 12:00:00 AM EDT eCW1 ([facility]) Sulfamethoxazole 800 MG / Trimethoprim 160 MG Oral Tab let [Bactrim] 02/28/2020 12:00:00 AM EDT eCW1 ([facility]) Sulfamethoxazole 800 MG / Trimethoprim 160 MG Oral Tab let [Bactrim] 02/28/2020 12:00:00 AM EDT eCW1 ([facility]) Sulfamethoxazole 800 MG / Trimethoprim 160 MG Oral Tab let [Bactrim] 02/28/2020 12:00:00 AM EDT eCW1 ([facility]) Famotidine 40 MG Oral Tablet 09/02/2019 12:00:00 AM EDT eCW1 ([facility]) Amoxicillin 875 MG Oral Tablet 06/04/2019 12:00:00 AM EST eCW1 ([facility])
--- OUTSIDE RECORDS SUMMARY | 2020-06-19 10:56 | CCD ---
Author Author [facility] Organization [facility] Address Unknown Phone Unavailable Care Team Providers Care Line Camera Operator Name Role Phone Wendy Licona Unavailable PROBLEMS Type Condition ICD9-CM Code QDV19-UF Code Onset Dates Condition S tatus SNOMED Code Notes Problem Other myositis, unspecified site M60.80 Active 69638150 Problem Encounter for immunization Z23 Active 69636 6002 Problem Vitamin D deficiency, unspecified E55.9 Active 45994284 Problem Iron deficiency anemia, unspecified D50.9 Acti ve 94462753 Problem CKD (chronic kidney disease), stage III N18.3 Active 770684730 Problem Hydronephrosis N13.30 Active 67542983 Problem Obstructive sleep apnea (adult) (pediatric) G47.33 Active 92082163 Problem UTI (urinary tract infection) N39.0 Active 68 002035 Problem 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 Ac tive 409712472 unable to tolate (multiple) PPIs; on H2A Problem Medicare annual wellness visit, subsequent Z00.00 Active 844533253 Problem Dyslipidemia E78.5 Active 045394135 intoleran t oif (multiple) statins Problem Benign enlargement of prostate N40.0 Active 2 59661569 Problem Preop testing Z01.818 Active 406127561 ALLERGIES Allergen (clinical drug ingredient) Drug/Non Drug Allergy do cumented on EMR Reaction Allergy Type Onset Date Status atorvastatin Lipitor(NDC Code:[address]-71) myalgias Drug Allergy Active Multiple statins myalgias Non Drug Allergy Ac tive omeprazole Prilosec(NDC Code:[address]-04) Diarrhea Drug Allergy Active Crestor muscle cramps Non Drug Allergy Activ e niacin Niacin([facility] Code:[address]-28) flushed Drug Allergy Active Zetia myalgias Non Drug Allergy Active Multiple PPI's Diarrhea Non Drug Allergy Acti ve ENCOUNTERS from 1934 to 2020-05-19 Encounter Location Date Provider Diagnosis [facility] Urology [address] [place] [address] May Wendy Recore Dysuria R30.0 ; UTI (urinary tract infec tion) N39.0 ; Hydronephrosis N13.30 and Pre-op testing Z01.818 IMMUNIZATIONS Vaccine Route Administration Date Status Influenza [...] Education Language: Question Answer Notes Languages spoken: Malay Restoration: Question Answer Notes Restoration 08 Restoration Sexual Hx: Question Answer Notes Had sex [...] REASON FOR REFERRAL No Information VITAL SIGNS Weight 174 lbs May, Height 69 in May, BMI 25.69 kg/m2 May, Heart Rate 91 /min May, Respiratory Rate 18 /min May, Oximetry 97% May, Blood pressure systolic 122 mm Hg May, Blood pressure diastolic 72 mm Hg May, MEDICATIONS Medication SIG (Take, Route, Frequency, Duration) Notes Start Da te End Date Status Famotidine 40 MG 1 tablet at bedtime Orally Once a day for 90 da y(s) August, Active Aspirin EC 81 MG 1 tablet Orally Once a day Active Eye Vitamins 2 capsule Orally Twice a day Active Aleve 220 MG 1 tablet as needed Orally every 12 hrs Active Flomax 0.4 MG 1 capsule Orally Once a day for 30 day(s) Active Cipro 500 MG 1 tablet Orally every 12 hrs for 14 day(s) Active Tylenol 325 MG 2 tablet as needed Orally prn Active Vitamin C 500 MG as directed Orally Active Magnesium 250 MG 1 tablet with a meal Orally Once a day for 30 day(s) Active Vitamin D 2000 UNIT 1 tablet Orally daily Active Fish Oil 1000 MG 1 capsule Orally Once a day Active Mucinex 600 MG 1 tablet as needed Orally every 12 hrs Active PROCEDURES No Information RESULTS No Results REASON FOR VISIT 2 MOS.. SIGN SURGERY CONSENT MEDICAL (GENERAL) HISTORY Type Description Date Medical [...] Left eye cataract 03/2016 Surgical History endoscopy 2017 Surgical History L URS 03/2020 Goals Section No Information Health Concerns No Information MEDICAL EQUIPMENT No Information MENTAL STATUS No Information FUNCTIONAL STATUS No Information ASSESSMENTS Encounter Date Diagnosis Assessment Notes Treatment Notes Treatm ent Clinical Notes 14 May, 2020 Dysuria (ICD-10 - R30.0) 14 May, 2020 UTI (urinary tract infection) (ICD-10 - N39.0) 14 May, 2020 Hydronephrosis (ICD-10 - N13.30) 14 May, 2020 Pre-op testing (ICD-10 - Z01.818) PLAN OF TREATMENT Medication Medication Name Sig Start Date Stop Date Cipro 500 MG 1 tablet Orally every 12 hrs for 14 day(s) Treatment Notes Test Name Order Date CBC - Complete Blood Count 2020-05-19 PT & APTT 2020-05-19 URINE CULTURE 2020-05-19 UA URINALYSIS 2020-05-19 Basic Metabolic Profile (BMP) 2020-05-19 Next Appt Details OR Reason: Provider Name:Facundo Rivka, 2020-05 08:30:00 AM, [address], [place], [address], Insurance Providers Payer Name Payer Address Payer Phone Insured Name Patient Relati onship to Insured Coverage Start Date Coverage End Date MEDICARE BLUE PPO [address] [facility] [id number] [address]
--- OUTSIDE RECORDS SUMMARY | 2020-06-19 10:56 | CCD ---
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.80 Active 19725644 Problem Encounter for immunization Z23 Active 74118 6002 Problem Vitamin D deficiency, unspecified E55.9 Active 66332803 Problem Iron deficiency anemia, unspecified D50.9 Acti ve 94471181 Problem CKD (chronic kidney disease), stage III N18.3 Active 660396920 Problem Hydronephrosis N13.30 Active 50274873 Problem Obstructive sleep apnea (adult) (pediatric) G47.33 Active 64358501 Problem UTI (urinary tract infection) N39.0 Active 68 117878 Problem 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 Ac tive 708803455 unable to tolate (multiple) PPIs; on H2A Problem Medicare annual wellness visit, subsequent Z00.00 Active 389786286 Problem Dyslipidemia E78.5 Active 430380441 intoleran t oif (multiple) statins Problem Benign enlargement of prostate N40.0 Active 2 14588069 Problem Preop testing Z01.818 Active 609327863 ALLERGIES Allergen (clinical drug ingredient) Drug/Non Drug Allergy do cumented on EMR Reaction Allergy Type Onset Date Status atorvastatin Lipitor(NDC Code:[address]-29) myalgias Drug Allergy Active Multiple statins myalgias Non Drug Allergy Ac tive omeprazole Prilosec(ND Code:[address]-21) Diarrhea Drug Allergy Active Crestor muscle cramps Non Drug Allergy Activ e niacin Niacin([facility] Code:[address]-75) flushed Drug Allergy Active Zetia myalgias Non Drug Allergy Active Multiple PPI's Diarrhea Non Drug Allergy Acti ve ENCOUNTERS from 1935 to 2020-04-03 Encounter Location Date Provider Diagnosis [facility] Urology [address] [place] [address] Mar Wendy Licona Dysuria R30.0 IMMUNIZATIONS Vaccine Route Administration Date [...] Education Language: Question Answer Notes Languages spoken: Angolan Pentecostalism: Question Answer Notes Pentecostalism 08 Yarsani Sexual Hx: Question Answer Notes Had sex [...] No Information RESULTS Component Value Reference Range URINE CULTURE Reviewed date:04/06/2020 08:25:38 Interpretation: Performing Lab:[facility], [facility] [address] [address] , ,[place] [address] REASON FOR VISIT urinary frequency, cloudy urine MEDICAL (GENERAL) HISTORY Type Description Date Medical [...] Notes Treatment Notes Treatm ent Clinical Notes Mar, Dysuria (ICD-10 - R30.0) PLAN OF TREATMENT Medication Medication Name Sig Start Date Stop Date Cipro 500 MG 1 tablet Orally every 12 hrs for 10 day(s) 2019 Treatment Notes Test Name Order Date URINE CULTURE 2020-04-03 UA URINALYSIS 2020-04-03 Next Appt Details Provider Name:Wendy Licona, 2020-05-01 4 09:00:00 AM, [address], [place], [address], Provider Name:Facundo Tineo, 2020-05 08:30:00 AM, [address], [place], [address], Insurance Providers Payer Name Payer Address Payer Phone Insured Name Patient Relati onship to Insured Coverage Start Date Coverage End Date MEDICARE BLUE PPO [address] [facility] [address] [address] self
--- OUTSIDE RECORDS SUMMARY | 2020-06-19 10:56 | CCD ---
Author Author [facility] Organization [facility] Address Unknown Phone Unavailable Care Team Providers Care Tool Adjuster Name Role Phone Facundo Tineo Unavailable PROBLEMS Type Condition ICD9-CM Code PZW55-IP Code Onset Dates Condition S tatus SNOMED Code Notes Problem Other myositis, unspecified site M60.80 Active 03498092 Problem Encounter for immunization Z23 Active 60353 6002 Problem Vitamin D deficiency, unspecified E55.9 Active 23325984 Problem Iron deficiency anemia, unspecified D50.9 Acti ve 57043639 Problem CKD (chronic kidney disease), stage III N18.3 Active 823800489 Problem Hydronephrosis N13.30 Active 60768710 Problem Obstructive sleep apnea (adult) (pediatric) G47.33 Active 15517712 Problem UTI (urinary tract infection) N39.0 Active 68 864312 Problem 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 Ac tive 284679010 unable to tolate (multiple) PPIs; on H2A Problem Medicare annual wellness visit, subsequent Z00.00 Active 083702249 Problem Dyslipidemia E78.5 Active 219974042 intoleran t oif (multiple) statins Problem Benign enlargement of prostate N40.0 Active 2 41644917 Problem Preop testing Z01.818 Active 644116300 ALLERGIES Allergen (clinical drug ingredient) Drug/Non Drug Allergy do cumented on EMR Reaction Allergy Type Onset Date Status atorvastatin Lipitor(NDC Code:[address]-70) myalgias Drug Allergy Active Multiple statins myalgias Non Drug Allergy Ac tive omeprazole Prilosec(NDC Code:[address]-80) Diarrhea Drug Allergy Active Crestor muscle cramps Non Drug Allergy Activ e niacin Niacin([facility] Code:[address]-32) flushed Drug Allergy Active Zetia myalgias Non Drug Allergy Active Multiple PPI's Diarrhea Non Drug Allergy Acti ve ENCOUNTERS from 1934 to 2020-05-29 Encounter Location Date Provider Diagnosis [facility] [address] [place] [address] May, Popeye Tineo Pre-op evaluation Z01.818 ; Iron deficiency anemia, unspecified D50.9 ; Pre-op testing Z01.818 ; CKD (chronic kidney disease), stage III N18.3 ; 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 ; Vitamin D deficiency, unspecified E55.9 ; Obstructive sleep apnea (adult) (pediatric) G47.33 and Dyslipidemia E78.5 IMMUNIZATIONS Vaccine Route Administration Date Status Influenza [...] Education Language: Question Answer Notes Languages spoken: Senegalese Sikhism: Question Answer Notes Sikhism 08 Denominational Sexual Hx: Question Answer Notes Had sex [...] May, BMI 25.69 kg/m2 May, Heart Rate 88 /min May, Respiratory Rate 18 /min May, Temperature 97.6 degrees Fahrenheit May, Oximetry 96 May, Blood pressure systolic 138 mm Hg May, Blood pressure diastolic 70 mm Hg May, MEDICATIONS Medication SIG (Take, [...] a day Active PROCEDURES No Information RESULTS REASON FOR VISIT left ureteral scopy MEDICAL (GENERAL) HISTORY Type Description Date Medical [...] Treatment Notes Treatm ent Clinical Notes May, Pre-op evaluation (ICD-10 - Z01.818) I discussed the risks vs. benefits of surgery with the patient in generic terms. I feel that they are at average risk for perioperative complications. I discussed the risks vs. benefits of surgery with the patient in generic terms. I feel that they are average risk for perioperative complications. Revised Cardiac Risk Index for Pre-Operative Risk is <2%: The patient knows that there is always some risk with surgery and they have to be comfortable that, for them, the benefits of surgery outweight the risks in order to proceed. If they have further questions regarding the specifics of the proposed surgical procedure and specific risks, they should discuss them with the surgeon. At this time I feel that the patient's acute and chronic medical conditions are sufficiently optimized at the present time. Interventions might affect perioperative risk are summarized below . I have also recommended the patient stop all medications as recommended by their surgeon and anesthesia except as detailed below . Hold aspirin and Aleve for 7 full days before surgery. Resart as soon as permitted by your surgeon Do not take any vitamins, supplements, or iron for 1 week before procedure. Take all other medications in usual manner and times before surgery, including the morning of your procedure May, Iron deficiency anemia, unspecified (ICD-10 - D5 0.9) TIBC/RHEq both nl May, Pre-op testing (ICD-10 - Z01.818) May, CKD (chronic kidney disease), stage III (ICD-10 - N18.3) avoid NSAIDs, other nephrotoxic drugs; monitor with periodic lab work; adjust meds for GFR May, 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 (ICD-10 - K22.70) intolerant of PPIs May, Vitamin D deficiency, unspecified (ICD-10 - E55. 9) May, Obstructive sleep apnea (adult) (pediatric) (ICD -10 - G47.33) May, Dyslipidemia (ICD-10 - E78.5) PLAN OF TREATMENT Medication Medication Name Sig Start Date Stop Date Vitamin D 2000 UNIT 1 tablet Orally daily Treatment Notes Assessment Notes Clinical Notes Pre-op evaluation I discussed the risk s vs. benefits of surgery with the patient in generic terms. I feel that they are at average risk for perioperative complications. I discussed the risks vs. benefits of surgery with the patient in generic terms. I feel that they are average risk for perioperative complications. Revised Cardiac Risk Index for Pre-Operative Risk is <2%: The patient knows that there is always some risk with surgery and they have to be comfortable that, for them, the benefits of surgery outweight the risks in order to proceed. If they have further questions regarding the specifics of the proposed surgical procedure and specific risks, they should discuss them with the surgeon. At this time I feel that the patient's acute and chronic medical conditions are sufficiently optimized at the present time. Interventions might affect perioperative risk are summarized below . I have also recommended the patient stop all medications as recommended by their surgeon and anesthesia except as detailed below . Hold aspirin and Aleve for 7 full days before surgery. Resart as soon as permitted by your surgeon Do not take any vitamins, supplements, or iron for 1 week before procedure. Take all other medications in usual manner and times before surgery, including the morning of your procedure Iron deficiency anemia, unspecified TIBC /RHEq both nl CKD (chronic kidney disease), stage III avoid NSAIDs, other nephrotoxic drugs; monitor with periodic lab work; adjust meds for GFR 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 in tolerant of PPIs Treatment Notes Test Name Order Date Electrocardiogram (EKG) 2020-05-29 Next Appt Details prn Reason: Provider Name:Solomon Felipe, 01:15:00 PM, [address], [place], [address], Insurance Providers Payer Name Payer Address Payer Phone Insured Name Patient Relati onship to Insured Coverage Start Date Coverage End Date MEDICARE BLUE PPO [phone] [address] [address] self
[2020-06-19] MEDS ORDERED: LIDOCAINE 2% 100MG/5ML SDV (FOR ANES.) As Ordered ONE (12:04)
[2020-06-19] MEDS ORDERED: propofoL 200 MG/20 ML VIAL As Ordered ONE (12:04)
[2020-06-19] MEDS ORDERED: fentaNYL 100 MCG/2 ML INJECTION (J3010) As Ordered ONE (12:04)
[2020-06-19] MEDS ORDERED: MIDAZOLAM INJ 2MG/2ML VIAL (J2250 PER 1MG) As Ordered ONE (12:04)
[2020-06-19] MEDS ORDERED: CONRAY-60 60% 50ML VIAL (Q9961) As Ordered ONE (12:50)
[2020-06-19] MEDS ORDERED: dexameTHASONE 4 MG/ML 1ML VIAL (J1100 PER 1MG) As Ordered ONE (13:13)
[2020-06-19] MEDS ORDERED: ACETAMINOPHEN 1000MG 100ML IV BTL (OFIRMEV) (J0131 PER 10MG) As Ordered ONE (13:20)
[2020-06-19] MEDS ORDERED: ONDANSETRON 4MG/2ML VIAL As Ordered ONE (13:23)
[2020-06-19] MEDS ORDERED: ePHEDrine SULFATE 25 MG/5 ML(5MG/ML) SYRINGE As Ordered ONE ×2 (13:31→14:39)
--- NOTE | 2020-06-19 13:56 | REP ---
INDICATION: LEFT CYSTO, STENT. COMPARISON: Comparison study March 05, 2020.. TECHNIQUE: Two views. 7 seconds of fluoroscopy time is reported. FINDINGS: A sequence of 2 last image hold fluoroscopically obtained spot radiographs of the abdomen document left ureteral cannulation, contrast injection, and pigtail stent placement. IMPRESSION: Procedural imaging. <Electronically signed by Garrett Buck > 06/19/20 0049
[2020-06-19] MEDS ORDERED: PERCOCET 5MG/325MG TAB PO PRN (14:30)
[2020-06-19] MEDS ORDERED: ONDANSETRON 4MG/2ML VIAL IV PRN (14:30)
[2020-06-19] MEDS ORDERED: fentaNYL 100 MCG/2 ML INJECTION (J3010) IV PRN (14:30)
[2020-06-19] MEDS ORDERED: LR 1,000 ML IV SCH (14:30)
[2020-06-19 15:50] VITALS: BP 135/68
--- NOTE | 2020-06-19 16:05 | RO ---
OPERATIVE NOTE DATE OF OPERATION: 06/19/2020 PREOPERATIVE DIAGNOSIS: Hydronephrosis. POSTOPERATIVE DIAGNOSIS: Hydronephrosis, left renal pelvic mass. PROCEDURE: Cystoscopy, left ureteroscopy with biopsies, left retrograde pyelogram with intraoperative interpretation of the images, left ureteral stent exchange. SURGEON: Dr. Solomon Felipe HANDTOOLS REPAIRER: None. ANESTHESIA: General. OPERATIVE INDICATIONS: This is an 84-year-old male who was brought the operating room about 3 months ago, and at that time he was found to have a large amount of necrotic-appearing tissue in his left renal pelvis. This appeared to be causing hydronephrosis. At that time, a stent was left in place with the plan to see if the tissue would break down and pass on its own, as I had a lot of difficulty trying to actually remove the tissue. He is brought back to the operating room today to take another look into the kidney. DESCRIPTION OF PROCEDURE: The patient was brought to the operating room and general anesthesia induced. Prophylactic antibiotics were infused. He was placed in the dorsal lithotomy position and prepped and draped in the usual sterile fashion. At this point, a rigid cystoscope was inserted in the ureteral meatus and advanced to the bladder. A guidewire was then advanced up the left collecting system alongside the stent. Of note, there was a lot of necrotic tissue on the end of the stent. That stent was completely removed. A ureteral access sheath was then advanced up the left collecting system. We then went up the access sheath with a flexible ureteroscope, and within the left kidney there was still a moderate amount of necrotic-appearing tissue inside the kidney. Of note, no specific masses were seen. I utilized a basket, and I was liya to easily remove this tissue from the left kidney at this time. Of note, also at the left ureteropelvic junction, it appeared to be stenotic, and there was some bullous-appearing tissue there. I obtained biopsies of this tissue as well. Once done, a retrograde pyelogram was performed, and there was some mild to moderate left hydronephrosis with no extravasation. I then withdrew the ureteroscope along with the access sheath, and no additional abnormalities were seen inside the ureter. I then utilized the guidewire to advance a 7-Croatian x 22-32 cm JJ ureteral stent up the left collecting system. The wire was removed, and there were adequate coils of the stent in the left renal pelvis and in the bladder. The bladder was then emptied of all fluids. The patient was then taken out of the dorsal lithotomy position, awakened from the anesthesia, and transferred to the recovery room in stable condition. ESTIMATED BLOOD LOSS: 5 mL. COMPLICATIONS: None. SPECIMENS: Biopsies of tissue from left renal pelvic. PLAN: The patient will followup in clinic to go over the pathology results. We will ultimately remove the stent in 3-4 weeks. JEANNETTE
== END 2020-06-19 15:55 | disposition home or self-care (01) ==
LOC: M SDC 10:51
PROVIDERS: ATTEND Urology
DX: N13.30 Unspecified hydronephrosis (principal); N28.89 Other specified disorders of kidney and ureter; D50.9 Iron deficiency anemia, unspecified; E55.9 Vitamin D deficiency, unspecified; E78.5 Hyperlipidemia, unspecified; E88.81 Metabolic syndrome and other insulin resistance; G47.33 Obstructive sleep apnea (adult) (pediatric); J30.89 Other allergic rhinitis; K22.70 Barrett's esophagus without dysplasia; N18.30 Chronic kidney disease, stage 3 unspecified; N40.0 Benign prostatic hyperplasia without lower urinary tract symptoms; R06.83 Snoring; R73.03 Prediabetes; Z79.82 Long term (current) use of aspirin; Z79.899 Other long term (current) drug therapy; Z88.8 Allergy status to other drugs, medicaments and biological substances
CPT/HCPCS: 52332; 52354; 74420; 88305; C1769; C2617; J0131; J0744; J1100; J2250; J2405; J3010; Q9961

== ENCOUNTER → 2020-07-28 | Outpatient (REF) | payer MEDICARE ==
[~2020-07-28] MED LIST changes: -CIPROFLOXACIN 400 MG in IV 1 EA IV ONE; -LR 1,000 ML IV ONE
[2020-07-28 13:25] LABS: HEMATOCRIT 41.9 % (42.0-52.0); HEMOGLOBIN 13.3 g/dl (13.5-17.5); MEAN CORPUSCULAR HEMOGLOBIN 30.2 pg (27.0-33.0); MEAN CORPUSCULAR HGB CONC 31.7 g/dl (32.0-36.5); MEAN CORPUSCULAR VOLUME 95.2 fl (80.0-96.0); PLATELET COUNT, AUTOMATED 248 10^3/uL (150-450); WHITE BLOOD COUNT 6.5 10^3/uL (4.0-10.0)
[2020-07-28 13:49] LABS: ALBUMIN 3.6 GM/DL (3.2-5.2); BILIRUBIN,TOTAL 0.5 MG/DL (0.2-1.0); CALCIUM LEVEL 9.6 MG/DL (8.8-10.2); CHOLESTEROL RISK RATIO 4.158 (<5); CREATININE FOR GFR 1.73 MG/DL (0.70-1.30); FREE T4 0.89 NG/DL (0.76-1.46); GLOMERULAR FILTRATION RATE 40.1 (>35); PERCENT SATURATION 25.5 % (19.7-50.0); POTASSIUM SERUM 5.4 MEQ/L (3.5-5.1); THYROID STIMULATING HORMONE 0.847 uIU/ML (0.358-3.740); TOTAL PROTEIN 6.7 GM/DL (6.4-8.2)
[2020-07-28 14:19] LABS: FOLATE 12.5 NG/ML (>5.4)
== END ==
LOC: M SFHCADAM 10:55
PROVIDERS: ATTEND Family Medicine
DX: D50.9 Iron deficiency anemia, unspecified (principal); N18.31 Chronic kidney disease, stage 3a; E78.5 Hyperlipidemia, unspecified; M79.89 Other specified soft tissue disorders; R63.4 Abnormal weight loss

== ENCOUNTER → 2020-09-24 | Outpatient (CLI) | payer MEDICARE ==
--- NOTE | 2020-09-24 09:09 | REP ---
INDICATION: HYDRONEPHROSIS COMPARISON: 02/12/2010 TECHNIQUE: Real time nicole scale ultrasound examination using curved array transducer. FINDINGS: Right kidney measures 12.1 x 5.1 x 4.1 cm and is normal in contour, size, echogenicity, and reniform shape without hydronephrosis, nephrolithiasis or renal mass lesion. A small subcentimeter lower pole cortical cyst is identified. Left kidney measures 8.9 x 4.5 x 4.3 cm and demonstrates 3.0 cm cyst along with grade 3 hydronephrosis. No nephrolithiasis or renal mass lesion appreciated. Bladder appears normal. Prostate gland measures 3.6 x 2.5 x 3.3 cm (15.5 cm. IMPRESSION: 1. Atrophic appearance to the left kidney with presumed chronic hydronephrosis and 3 cm simple cyst. Right kidney appears relatively normal. Findings are relatively confirmed by CT dated 02/17/2020. <Electronically signed by Krystian Rodriguez > 09/24/20 [id number]
== END ==
LOC: M RAD 08:09
PROVIDERS: ATTEND Urology
DX: N13.30 Unspecified hydronephrosis (principal)

== ENCOUNTER → 2020-10-01 | Outpatient (REF) | payer MEDICARE ==
[2020-10-01 12:24] LABS: HEMATOCRIT 41.8 % (42.0-52.0); HEMOGLOBIN 13.3 g/dl (13.5-17.5); MEAN CORPUSCULAR HGB CONC 31.8 g/dl (32.0-36.5); MEAN CORPUSCULAR VOLUME 97.4 fl (80.0-96.0); PLATELET COUNT, AUTOMATED 228 10^3/uL (150-450); RED BLOOD COUNT 4.29 10^6/uL (4.30-6.10); WHITE BLOOD COUNT 5.4 10^3/uL (4.0-10.0)
[2020-10-01 12:47] LABS: ALBUMIN 3.2 GM/DL (3.2-5.2); BILIRUBIN,TOTAL 0.5 MG/DL (0.2-1.0); CALCIUM LEVEL 9.4 MG/DL (8.8-10.2); CREATININE FOR GFR 1.65 MG/DL (0.70-1.30); GLOMERULAR FILTRATION RATE 42.3 (>35); PERCENT SATURATION 31.6 % (19.7-50.0); POTASSIUM SERUM 4.3 MEQ/L (3.5-5.1); TOTAL PROTEIN 5.9 GM/DL (6.4-8.2)
== END ==
LOC: M SFHCADAM 09:00
PROVIDERS: ATTEND Family Medicine
DX: D50.9 Iron deficiency anemia, unspecified (principal); N18.31 Chronic kidney disease, stage 3a; E53.8 Deficiency of other specified B group vitamins

== ENCOUNTER → 2021-01-25 | Outpatient (REF) | payer MEDICARE ==
[2021-01-25 14:08] LABS: APPEARANCE, URINE CLEAR (CLEAR); BACTERIA, URINE AUTO NEGATIVE (NEGATIVE); BILIRUBIN, URINE AUTO NEGATIVE (NEGATIVE); BLOOD, URINE BLOOD NEGATIVE (NEGATIVE); COLOR, URINE YELLOW (YELLOW); GLUCOSE, URINE (UA) AUTO NEGATIVE (NEGATIVE); KETONE, URINE AUTO NEGATIVE (NEGATIVE); LEUKOCYTE ESTERASE, URINE AUTO NEGATIVE (NEGATIVE); MUCUS, URINE SMALL (NEGATIVE); NITRITE, URINE AUTO NEGATIVE (NEGATIVE); PROTEIN, URINE AUTO NEGATIVE (NEGATIVE); RBC, URINE AUTO 0 /HPF (0-3); SQUAMOUS EPITHELIAL CELL UR AU 0 /HPF (0-6); UROBILINOGEN, URINE AUTO 0.2 mg/dL (0.0-2.0); WBC, URINE AUTO 1 /HPF (0-3)
== END ==
LOC: M SMT 13:01
PROVIDERS: ATTEND Urology
DX: N13.30 Unspecified hydronephrosis (principal); R10.9 Unspecified abdominal pain
CPT/HCPCS: 81001; 87086; G0463

== ENCOUNTER → 2021-02-15 | Outpatient (CLI) | payer MEDICARE ==
--- NOTE | 2021-02-15 17:03 | REP ---
INDICATION: HYDRONEPHROSIS. COMPARISON: Multiple the latest 02/17/2020 TECHNIQUE: Standard helical technique without contrast . FINDINGS: there is no change in lung bases. There is a large hiatal hernia status quo. The liver, gallbladder, spleen, pancreas, adrenal glands, and kidneys are essentially unchanged with the exception of resolved left-sided hydronephrosis. There are bilateral renal cysts status quo some are hyperdense. The abdominal aorta and para-aortic regions are unchanged the bowel loops and the mesenteries are unchanged. There is no free fluid or free air. There is no mass or adenopathy. There is no change in the bones. IMPRESSION: Left-sided hydronephrosis seen previously has resolved. Other findings and chronic changes as described above. <Electronically signed by Magnus Rivers > 02/15/21 [id number]
== END ==
LOC: M RAD 10:06
PROVIDERS: ATTEND Urology
DX: N13.30 Unspecified hydronephrosis (principal); R10.9 Unspecified abdominal pain

== ENCOUNTER → 2021-04-20 | Outpatient (REF) | payer MEDICARE ==
[2021-04-20 12:47] LABS: HEMOGLOBIN 12.5 g/dl (13.5-17.5); MEAN CORPUSCULAR HEMOGLOBIN 31.1 pg (27.0-33.0); MEAN CORPUSCULAR HGB CONC 32.1 g/dl (32.0-36.5); PLATELET COUNT, AUTOMATED 200 10^3/uL (150-450); RED BLOOD COUNT 4.02 10^6/uL (4.30-6.10); WHITE BLOOD COUNT 5.5 10^3/uL (4.0-10.0)
[2021-04-20 13:22] LABS: ALBUMIN 2.9 GM/DL (3.2-5.2); BILIRUBIN,TOTAL 0.3 MG/DL (0.2-1.0); CALCIUM LEVEL 9.2 MG/DL (8.8-10.2); CREATININE FOR GFR 1.62 MG/DL (0.70-1.30); GLOMERULAR FILTRATION RATE 43.2 (>35); PERCENT SATURATION 20.3 % (19.7-50.0); POTASSIUM SERUM 4.8 MEQ/L (3.5-5.1); TOTAL PROTEIN 5.8 GM/DL (6.4-8.2)
== END ==
LOC: M SFHCADAM 09:39
PROVIDERS: ATTEND Family Medicine
DX: N18.31 Chronic kidney disease, stage 3a (principal); D50.9 Iron deficiency anemia, unspecified; E53.8 Deficiency of other specified B group vitamins; E55.9 Vitamin D deficiency, unspecified

== ENCOUNTER → 2021-10-29 | Outpatient (CLI) | payer MEDICARE ==
[2021-10-29 14:33] LABS: HEMATOCRIT 39.8 % (42.0-52.0); HEMOGLOBIN 13.1 g/dl (13.5-17.5); MEAN CORPUSCULAR HEMOGLOBIN 31.9 pg (27.0-33.0); MEAN CORPUSCULAR HGB CONC 32.9 g/dl (32.0-36.5); MEAN CORPUSCULAR VOLUME 96.8 fl (80.0-96.0); PLATELET COUNT, AUTOMATED 214 10^3/uL (150-450); RED BLOOD COUNT 4.11 10^6/uL (4.30-6.10); WHITE BLOOD COUNT 6.4 10^3/uL (4.0-10.0)
[2021-10-29 15:10] LABS: CALCIUM LEVEL 9.6 MG/DL (8.8-10.2); CREATININE FOR GFR 1.66 MG/DL (0.70-1.30); GLOMERULAR FILTRATION RATE 41.9 (>35); PERCENT SATURATION 32.4 % (19.7-50.0); POTASSIUM SERUM 4.7 MEQ/L (3.5-5.1)
== END ==
LOC: M LAB 14:08
PROVIDERS: ATTEND Family Medicine
DX: D50.9 Iron deficiency anemia, unspecified (principal); N18.31 Chronic kidney disease, stage 3a

== ENCOUNTER → 2022-01-05 | Outpatient (CLI) | payer MEDICARE ==
[2022-01-05 13:14] LABS: HEMATOCRIT 42.8 % (42.0-52.0); HEMOGLOBIN 13.5 g/dl (13.5-17.5); MEAN CORPUSCULAR HEMOGLOBIN 30.7 pg (27.0-33.0); MEAN CORPUSCULAR HGB CONC 31.5 g/dl (32.0-36.5); MEAN CORPUSCULAR VOLUME 97.3 fl (80.0-96.0); PLATELET COUNT, AUTOMATED 227 10^3/uL (150-450); WHITE BLOOD COUNT 5.6 10^3/uL (4.0-10.0)
[2022-01-05 13:36] LABS: APPEARANCE, URINE MANUAL CLEAR (CLEAR); COLOR, URINE MANUAL YELLOW (YELLOW)
[2022-01-05 13:37] LABS: BILIRUBIN, URINE MANUAL NEGATIVE (NEGATIVE); BLOOD URINE MANUAL NEGATIVE (NEGATIVE); GLUCOSE, URINE (UA) MANUAL NEGATIVE (NEGATIVE); KETONE, URINE MANUAL NEGATIVE (NEGATIVE); LEUKOCYTE ESTERASE, URINE MAN POSITIVE (NEGATIVE); NITRITE, URINE MANUAL NEGATIVE (NEGATIVE); PROTEIN, URINE MANUAL NEGATIVE (NEGATIVE); UROBILINOGEN, URINE MANUAL NORMAL (NORMAL)
[2022-01-05 14:01] LABS: ALBUMIN 3.2 GM/DL (3.2-5.2); ALT/SGPT 17 U/L (12-78); BILIRUBIN,TOTAL 0.6 MG/DL (0.2-1.0); BLOOD UREA NITROGEN 22 MG/DL (7-18); CALCIUM LEVEL 9.2 MG/DL (8.8-10.2); CARBON DIOXIDE LEVEL 26 MEQ/L (21-32); CHLORIDE LEVEL 111 MEQ/L (98-107); CREATININE FOR GFR 1.56 MG/DL (0.70-1.30); FERRITIN 39 NG/ML (26-388); GLUCOSE, FASTING 91 MG/DL (70-100); IRON (FE) 82 UG/DL (65-175); PERCENT SATURATION 29.4 % (19.7-50.0); POTASSIUM SERUM 4.5 MEQ/L (3.5-5.1); SODIUM LEVEL 141 MEQ/L (136-145); TOTAL IRON BINDING CAPACITY 279 UG/DL (250-450)
[2022-01-05 14:39] LABS: WBC, URINE 0-1 /hpf (0-3)
[2022-01-05 14:41] LABS: BACTERIA, URINE NONE SEEN; HYALINE CAST, URINE NONE SEEN /lpf (0-1); RBC, URINE NONE SEEN /hpf (0-3); SQUAMOUS EPITHELIAL CELL URINE NONE SEEN /hpf (SMALL AMT)
[2022-01-05 14:48] LABS: VITAMIN B12 LEVEL > 2000 PG/ML (247-911)
== END ==
LOC: M ADAMS 08:35
PROVIDERS: ATTEND Family Medicine
DX: M54.42 Lumbago with sciatica, left side (principal); G89.29 Other chronic pain; R63.4 Abnormal weight loss; N18.31 Chronic kidney disease, stage 3a; D50.9 Iron deficiency anemia, unspecified; E53.8 Deficiency of other specified B group vitamins; R97.20 Elevated prostate specific antigen [PSA]

== ENCOUNTER → 2022-02-08 | Outpatient (CLI) | payer MEDICARE | LOC: M PLAIMG 09:30 | PROVIDERS: ATTEND Urology | DX: N13.30 Unspecified hydronephrosis (principal) ==

== ENCOUNTER → 2022-04-11 | Outpatient (REF) | payer MEDICARE ==
[2022-04-11 14:00] LABS: HEMOGLOBIN 12.9 g/dl (13.5-17.5); MEAN CORPUSCULAR HEMOGLOBIN 30.6 pg (27.0-33.0); MEAN CORPUSCULAR HGB CONC 30.7 g/dl (32.0-36.5); MEAN CORPUSCULAR VOLUME 99.5 fl (80.0-96.0); PLATELET COUNT, AUTOMATED 237 10^3/uL (150-450); RED BLOOD COUNT 4.22 10^6/uL (4.30-6.10); WHITE BLOOD COUNT 5.7 10^3/uL (4.0-10.0)
[2022-04-11 14:25] LABS: CALCIUM LEVEL 9.7 MG/DL (8.3-10.6); CREATININE FOR GFR 1.85 MG/DL (0.70-1.30)
[2022-04-11 14:26] LABS: PERCENT SATURATION 29.1 % (19.7-50.0)
[2022-04-11 14:27] LABS: FERRITIN 27.2 NG/ML (10.5-307.3)
== END ==
LOC: M SFHCADAM 07:53
PROVIDERS: ATTEND Family Medicine
DX: D50.9 Iron deficiency anemia, unspecified (principal); N18.31 Chronic kidney disease, stage 3a

== ENCOUNTER → 2022-04-18 | Outpatient (REF) | payer MEDICARE ==
[2022-04-18 16:37] LABS: C REACTIVE PROTEIN QUANTITATIV < 0.40 MG/DL (<1.0)
[2022-04-18 16:39] LABS: THYROID STIMULATING HORMONE 1.052 uIU/ML (0.55-4.78)
== END ==
LOC: M SFHCADAM 14:49
PROVIDERS: ATTEND Physician Assistant
DX: R19.5 Other fecal abnormalities (principal); R19.4 Change in bowel habit

== ENCOUNTER → 2022-04-19 | Outpatient (REF) | payer MEDICARE | LOC: M SFHCADAM 12:54 | PROVIDERS: ATTEND Physician Assistant | DX: R19.4 Change in bowel habit (principal); R19.5 Other fecal abnormalities ==

== ENCOUNTER → 2022-05-10 | Outpatient (CLI) | payer MEDICARE | LOC: M PLAIMG 12:44 | PROVIDERS: ATTEND Family Medicine | DX: K44.9 Diaphragmatic hernia without obstruction or gangrene (principal); N13.0 Hydronephrosis with ureteropelvic junction obstruction ==

== ENCOUNTER → 2022-11-24 | Outpatient (REF) | payer MEDICARE ==
[2022-11-24 18:20] LABS: HEMATOCRIT 41.5 % (42.0-52.0); HEMOGLOBIN 13.2 g/dl (13.5-17.5); MEAN CORPUSCULAR HEMOGLOBIN 30.6 pg (27.0-33.0); MEAN CORPUSCULAR HGB CONC 31.8 g/dl (32.0-36.5); MEAN CORPUSCULAR VOLUME 96.3 fl (80.0-96.0); PLATELET COUNT, AUTOMATED 228 10^3/uL (150-450); RED BLOOD COUNT 4.31 10^6/uL (4.30-6.10); WHITE BLOOD COUNT 5.5 10^3/uL (4.0-10.0)
[2022-11-24 18:31] LABS: FERRITIN 43.2 NG/ML (10.5-307.3)
[2022-11-24 18:32] LABS: PERCENT SATURATION 24.5 % (19.7-50.0)
[2022-11-24 18:34] LABS: ALBUMIN 3.2 G/DL (3.2-5.2); BILIRUBIN,TOTAL 0.6 MG/DL (0.3-1.2); CALCIUM LEVEL 9.2 MG/DL (8.3-10.6); CREATININE FOR GFR 1.58 MG/DL (0.70-1.30); GLOMERULAR FILTRATION RATE 44.3 (>35); POTASSIUM SERUM 4.4 MMOL/L (3.5-5.1)
== END ==
LOC: M SFHCADAM 14:18
PROVIDERS: ATTEND Family Medicine
DX: N18.31 Chronic kidney disease, stage 3a (principal); K22.70 Barrett's esophagus without dysplasia; D50.9 Iron deficiency anemia, unspecified

== ENCOUNTER → 2023-02-09 | Outpatient (CLI) | payer MEDICARE | LOC: M ADAMS 10:41 | PROVIDERS: ATTEND Family Medicine | DX: R05.3 Chronic cough (principal) ==

== ENCOUNTER → 2023-02-09 | Outpatient (REF) | payer MEDICARE ==
[2023-02-09 12:59] LABS: HEMOGLOBIN 13.2 g/dl (13.5-17.5); MEAN CORPUSCULAR HEMOGLOBIN 31.1 pg (27.0-33.0); MEAN CORPUSCULAR HGB CONC 32.2 g/dl (32.0-36.5); MEAN CORPUSCULAR VOLUME 96.5 fl (80.0-96.0); PLATELET COUNT, AUTOMATED 266 10^3/uL (150-450); RED BLOOD COUNT 4.25 10^6/uL (4.30-6.10); WHITE BLOOD COUNT 6.2 10^3/uL (4.0-10.0)
[2023-02-09 13:24] LABS: ALBUMIN 3.1 G/DL (3.2-5.2); BILIRUBIN,TOTAL 0.7 MG/DL (0.3-1.2); CALCIUM LEVEL 9.4 MG/DL (8.3-10.6); CREATININE FOR GFR 1.58 MG/DL (0.70-1.30); GLOMERULAR FILTRATION RATE 44.3 (>35); POTASSIUM SERUM 4.6 MMOL/L (3.5-5.1); TOTAL PROTEIN 6.3 G/DL (5.7-8.2)
== END ==
LOC: M SFHCADAM 10:35
PROVIDERS: ATTEND Family Medicine
DX: R05.3 Chronic cough (principal); K22.70 Barrett's esophagus without dysplasia

== ENCOUNTER → 2023-02-24 | Outpatient (CLI) | payer MEDICARE | LOC: M PLAIMG 09:41 | PROVIDERS: ATTEND Family Medicine | DX: R91.1 Solitary pulmonary nodule (principal); N26.9 Renal sclerosis, unspecified; K44.9 Diaphragmatic hernia without obstruction or gangrene ==

== ENCOUNTER → 2023-05-10 | Outpatient (REF) | payer MEDICARE | LOC: M SFHCADAM 16:46 | PROVIDERS: ATTEND Physician Assistant Medical | DX: R05.1 Acute cough (principal) ==

== ENCOUNTER → 2023-05-26 | Outpatient (CLI) | payer MEDICARE | LOC: M ADAMS 09:46 | PROVIDERS: ATTEND Physician Assistant | DX: R05.3 Chronic cough (principal) ==

== ENCOUNTER → 2023-11-28 | Outpatient (REF) | payer MEDICARE ==
[2023-11-28 17:02] LABS: HEMATOCRIT 38.1 % (42.0-52.0); HEMOGLOBIN 12.1 g/dl (13.5-17.5); MEAN CORPUSCULAR HEMOGLOBIN 31.3 pg (27.0-33.0); MEAN CORPUSCULAR HGB CONC 31.8 g/dl (32.0-36.5); MEAN CORPUSCULAR VOLUME 98.4 fl (80.0-96.0); PLATELET COUNT, AUTOMATED 223 10^3/uL (150-450); RED BLOOD COUNT 3.87 10^6/uL (4.30-6.10)
[2023-11-28 17:15] LABS: INR 1.06; PARTIAL THROMBOPLASTIN TIME 35.8 SECONDS (24.8-34.2); PROTHROMBIN TIME 13.5 SECONDS (12.5-14.5)
[2023-11-28 17:29] LABS: PERCENT SATURATION 28.7 % (19.7-50.0)
[2023-11-28 17:30] LABS: ALBUMIN 3.2 G/DL (3.2-5.2); BILIRUBIN,TOTAL 0.6 MG/DL (0.3-1.2); CALCIUM LEVEL 9.8 MG/DL (8.3-10.6); CREATININE FOR GFR 1.6 MG/DL (0.70-1.30); GLOMERULAR FILTRATION RATE 43.5 (>35); POTASSIUM SERUM 4.7 MMOL/L (3.5-5.1)
[2023-11-28 17:31] LABS: FERRITIN 33.2 NG/ML (10.5-307.3)
== END ==
LOC: M SFHCADAM 14:19
PROVIDERS: ATTEND Family Medicine
DX: K22.70 Barrett's esophagus without dysplasia (principal); D50.9 Iron deficiency anemia, unspecified; E53.8 Deficiency of other specified B group vitamins; M79.89 Other specified soft tissue disorders

== ENCOUNTER → 2023-11-29 | Outpatient (CLI) | payer MEDICARE | LOC: M WHC 10:23 | PROVIDERS: ATTEND Family Medicine | DX: M79.89 Other specified soft tissue disorders (principal) ==

== ENCOUNTER → 2024-03-13 | Outpatient (REF) | payer MEDICARE ==
[2024-03-13 17:41] LABS: HEMATOCRIT 42.4 % (42.0-52.0); HEMOGLOBIN 13.3 g/dl (13.5-17.5); MEAN CORPUSCULAR HEMOGLOBIN 31.1 pg (27.0-33.0); MEAN CORPUSCULAR HGB CONC 31.4 g/dl (32.0-36.5); MEAN CORPUSCULAR VOLUME 99.1 fl (80.0-96.0); PLATELET COUNT, AUTOMATED 261 10^3/uL (150-450); RED BLOOD COUNT 4.28 10^6/uL (4.30-6.10); WHITE BLOOD COUNT 8.1 10^3/uL (4.0-10.0)
[2024-03-13 17:48] LABS: CALCIUM LEVEL 10.1 MG/DL (8.3-10.6); CREATININE FOR GFR 1.47 MG/DL (0.70-1.30); PERCENT SATURATION 27.2 % (19.7-50.0); POTASSIUM SERUM 4.9 MMOL/L (3.5-5.1)
[2024-03-13 17:50] LABS: FERRITIN 35.3 NG/ML (10.5-307.3)
== END ==
LOC: M SFHCADAM 11:58
PROVIDERS: ATTEND Family Medicine
DX: K22.70 Barrett's esophagus without dysplasia (principal); N18.32 Chronic kidney disease, stage 3b; D50.9 Iron deficiency anemia, unspecified